=== PATIENT | female | born 1945 | race Asian ===

== ENCOUNTER 2016-07-30 09:37 | Inpatient (IN) | payer MEDICARE, OTHER ==
[~2016-07-30] VITALS: Ht 152.4 cm; Wt 59.0 kg
[~2016-07-30 09:37] MED LIST: ACYC800T PO; AMOX1TAB61 PO; CALC-67 PO; CHLO25TA PO; CIPR500T94 PO; ESOM40CA25 PO; FERR324T14 PO; FLUT1DIS3 IH; GEMF600T PO; GUAI118L20 PO; HYDR12.53 PO; LEVO50TA5 PO; LOSA50TA2 PO; MECL25TA3 PO; OLOP5DRO EACHEYE; SERT50TA PO; SIMV40TA PO; TELM40TA PO
--- NOTE | 2016-07-30 10:22 | PHYS DOC ---
General Chief Complaint: CHEST PAIN Stated Complaint: SOA;CHEST TIGHTNESS Time Seen by MD: 10:09 Source: patient Exam Limitations: language barrier (Urdu 2nd language) Problems: History of Present Illness Initial Comments Pt is 71/F to ED c/o cp, sob, and whole body pain. Pt states that "right before " she developed anterior chest pain described as tightness, moderate, with SOB. No n/v, arm or neck sx, diaphoresis , palpitations, or dizziness. Sx have been constant/progressively increasing since that time. No exacerbating/relieving factors, but past few days pt c/o whole body pain. No cough/fever/FINK/focal neurodefs, no prearrival treatment. Pt states that yesterday morning after drinking coffee she noticed b/l hand tremors, she says she drove here to the ED thinking she may have Parkinson's but did not see a good place to park so decided not to stay and drove home. Pt is very vague historian, she doesn't know her home medications. Timing/Duration: getting worse ("right before ") Severity: severe Modifying Factors: improves with other Associated Symptoms: chest pain, malaise, shortness of breath, other Allergies: Coded Allergies: No Known Drug Allergies (Unverified , 11/26/15) Past Medical History Medical History: high cholesterol, hypertension Surgical History: noncontributory Psychosocial History: anxiety, depression Social History Smoker: non-smoker Alcohol: none Drugs: none Review of Systems Constitutional: denies chills, denies diaphoresis, denies fever Respiratory: denies cough, shortness of breathdenies wheezing Cardiovascular: chest paindenies edema, denies palpitations, denies syncope Gastrointestinal: denies abdominal pain, denies constipation, denies diarrhea, denies nausea, denies vomiting Genitourinary: denies dysuria, denies frequency, denies hematuria Musculoskeletal: see HPI Psychiatric/Neurological: denies headache, denies numbness, denies paresthesia , denies seizure, denies weakness Physical Exam General Appearance: WD/WN, no apparent distress Eyes: bilateral eye EOMI, bilateral eye PERRL, bilateral eye normal inspection Ear, Nose, Throat: hearing grossly normal, normal ENT inspection, normal pharynx Neck: non-tender, supple Respiratory: chest non-tender, normal breath sounds, no respiratory distress Cardiovascular: normal peripheral pulses, regular rate, rhythm, no edema Gastrointestinal: non tender, soft Back: no CVA tenderness, no vertebral tenderness Extremities: non-tender, normal inspection Neurologic/Psychiatric: stem shaper II-XII nml as tested, no motor/sensory deficits, alert, oriented x 3, other (anxious, pressured speech, tangential) Skin: normal color, warm/dry Orders, Labs, Meds EKG: NSR 94 bpm, no ST elevation or depression PATIENT: ANASTACIO NUGENT ACCOUNT: [id number] : 1945 LOCATION: ER AGE: 71 SEX: F EXAM STATUS: REG ER ORD. PHYSICIAN: ISAIAH RIGGINS DO REASON: cp PROCEDURE: CHEST AP ONLY AP portable chest radiograph 07/30/2016 Clinical History: Chest pain for one week. An AP portable erect digital radiograph of the chest was obtained. Comparison study is dated 12/17/2015. The cardiac silhouette is borderline enlarged. The thoracic aorta is mildly tortuous. Atherosclerotic calcification of the thoracic aorta is seen. No acute pulmonary infiltrate is seen. No pleural effusion or pneumothorax is noted. Degenerative changes are seen involving the thoracic spine and both shoulders. Impression: No acute abnormality is seen. DICTATED AND SIGNED BY: KINA CANCHOLA MD DATE: 07/30/16 1035 CC: JANE NAZARIO APRN; ISAIAH RIGGINS DO ~ I discussed pt with oracle database consultant Cardiology Dr Johnson. He recommends [facility] admission , repeat troponin I at 1800 and in am at 0600, check echo/EKG in am. Pt discussed with Dr Corrales who accepts tele/obs admission. Departure Disposition: ADMITTED INPATIENT Diagnosis: chest pain, equivocal troponin I, elev BNP Condition: STABLE Additional Instructions: Tele/obs admission Dr Corrales accepting Dr Johnson to consult. ISAIAH RIGGINS DO Jul 30, 2016 10:22
[2016-07-30 10:23] LABS: BASO % 1 % (0-3); EOS # 0.1 x10^3/uL (0.0-0.7); EOS % 3 % (0-3); HEMOGLOBIN 10.9 g/dL (12.0-15.5); LYMPH # 1.2 x10^3/uL (1.0-4.8); LYMPH % 25 % (24-48); MEAN CORPUSCULAR HEMOGLOBIN 32 pg (25-35); MEAN CORPUSCULAR HGB CONC 34 g/dL (31-37); MEAN CORPUSCULAR VOLUME 94 fL (79-100); MONO # 0.4 x10^3/uL (0.0-1.1); MONO % 9 % (0-9); NEUT % 63 % (31-73); PLATELET COUNT 177 x10^3/uL (140-400); RED BLOOD COUNT 3.41 x10^6/uL (3.50-5.40); RED CELL DISTRIBUTION WIDTH 12.1 % (11.5-14.5); WHITE BLOOD COUNT 4.8 x10^3/uL (4.0-11.0)
--- NOTE | 2016-07-30 10:38 | RAD ---
AP portable chest radiograph 07/30/2016 Clinical History: Chest pain for one week. An AP portable erect digital radiograph of the chest was obtained. Comparison study is dated 12/17/2015. The cardiac silhouette is borderline enlarged. The thoracic aorta is mildly tortuous. Atherosclerotic calcification of the thoracic aorta is seen. No acute pulmonary infiltrate is seen. No pleural effusion or pneumothorax is noted. Degenerative changes are seen involving the thoracic spine and both shoulders. Impression: No acute abnormality is seen.
[2016-07-30 10:39] LABS: ALBUMIN 3.9 g/dL (3.4-5.0); ALBUMIN/GLOBULIN RATIO 1.1 (1.0-1.7); CALCIUM 9.6 mg/dL (8.5-10.1); CREATININE 0.9 mg/dL (0.6-1.0); GFR 61.4; MAGNESIUM 1.8 mg/dL (1.8-2.4); POTASSIUM 4.1 mmol/L (3.5-5.1); TOTAL BILIRUBIN 0.7 mg/dL (0.2-1.0); TOTAL PROTEIN 7.5 g/dL (6.4-8.2)
[2016-07-30] MEDS ORDERED: ASPIRIN 81 MG TAB.CHEW PO ONE (10:45)
--- NOTE | 2016-07-30 10:45 | EKG ---
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
[2016-07-30] MEDS ORDERED: ONDANSETRON PF 4 MG/2 ML VIAL. IV PRN (13:15)
[2016-07-30] MEDS ORDERED: ACETAMINOPHEN 325 MG TABLET PO PRN (13:15)
[2016-07-30 14:00] VITALS: BP 172/83
--- NOTE | 2016-07-30 14:50 | HP ---
ADMIT DATE: 07/30/2016 REASON FOR ADMISSION: Chest pain. HISTORY OF PRESENT ILLNESS: This is a 71-year-old [place] female, who presented to the Emergency Room complaining of a 7-day history of chest pain off and on, which she describes as below boom boom boom. Squeezing type pain that started before Easter. Yesterday, she was coming to go to the Emergency Room and she could not find a parking spot because after drinking coffee, she had hand tremors, but she could not find a good place to park it. So, she left. She denies any type of diaphoresis, but this is ongoing now to the point where her whole body sores. She has to stop herself when it happens and then continue on what she has been doing. She denies any heavy lifting, moving furniture or palpatory chest pain. PAST MEDICAL HISTORY: Right tennis elbow, asthma, allergies, hypothyroidism, hypertension, hyperlipidemia and stress and depression. SOCIAL HISTORY: Nonsmoker, nondrinker. She used to work. 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 FAMILY HISTORY: Father of a heart attack. He had a heart attack in his 60s and at around 70. Mother at age 84. She was sick for a month and then , but otherwise had been well. Maternal grandmother at 92. MEDICATIONS: She does not know her medications. ALLERGIES: None. REVIEW OF SYSTEMS: She denies sore throat, fever. Positive for nervousness and shakes after drinking coffee. Denies weight loss, may be a mild weight gain, yes chest pain, nervousness, stress. OBJECTIVE: VITAL SIGNS: Blood pressure 172/83, pulse 101, respirations 20, and pulse ox is 99% on room air. Her height is 60 inches, weight 130 pounds. GENERAL: A pleasant 71-year-old, currently in no acute distress. HEENT: Her hearing is normal. Her eyes are clear. Her nose is patent. Her throat is clear. NECK: Supple, without adenopathy. There were no carotid bruits. Thyroid was not enlarged. LUNGS: Clear to auscultation. CARDIOVASCULAR: Regular rhythm and rate. ABDOMEN: Soft, nontender, no masses palpated. EXTREMITIES: Without edema, cords, masses, etc. NEUROLOGIC: She is intact. No tremors. LABORATORY DATA: Hemoglobin 10.9, hematocrit 32.0. Electrolytes are normal. Random glucose 178. Her BNP is 655. First troponin is 0.053, D-dimer is 0.39. ASSESSMENT: 1. Chest pain, questionable etiology, certainly has risk factors for coronary artery disease. 2. Normochromic normocytic anemia. 3. Equivocal troponin. 4. Mildly elevated random glucose. 5. Asthma. PLAN: Dr. Majano, the perianesthesia rn will follow along, we will do serial troponins, echo, carotid Dopplers, may benefit from a stress test and we will repeat her blood sugar in the morning. JUAN R MORTON DO DR: LAURA/pauly JOB#: [id number] / [id number]
[2016-07-30 15:10] VITALS: BP 172/83
[2016-07-30] MEDS ORDERED: HEPARIN for IV BOLUS 10,000 UNIT/10 ML VIAL. IV PRN ×2 (15:30→15:45)
[2016-07-30] MEDS ORDERED: HEPARIN 25,000UTS/500ML PREMIX 500 ML IV PRN (15:30)
[2016-07-30] MEDS ORDERED: HEPARIN for IV BOLUS 10,000 UNIT/10 ML VIAL. IV ONE (15:45)
--- NOTE | 2016-07-30 17:08 | RAD ---
Bilateral carotid arterial duplex study 07/30/2016 Clinical History: Dizziness. Technique: Using a combination of real-time ultrasound imaging and color-flow and pulse Doppler imaging techniques, duplex evaluation of the carotid and vertebral arterial structures within the neck was performed. Multiple images were obtained. Findings: Mild atheromatous /atherosclerotic plaque formation is seen involving both carotid bifurcations. The peak systolic velocities are not significantly elevated. No hemodynamically significant stenosis is seen. The vertebral arteries demonstrate normal antegrade flow. Impression: Mild atheromatous/atherosclerotic plaque formation is seen involving both carotid bifurcations. No hemodynamically significant stenosis is seen. Please note that stenosis calculations for carotid ultrasound studies are derived from validated velocity criteria which are known to correlate with the NASCET methodology.
--- NOTE | 2016-07-30 18:12 | ACF ---
Admission Criteria Forms CARDIOLOGY [facility] Clinical Indications for Admission to Inpatient Care ( Place 'X' for any and all applicable criteria): Hospital admission is needed for appropriate care of the patient because of ANY ONE of the following (1): [ ] I. Hemodynamic instability as indicated by ALL of the following (1)(2)(3) (4)(5) [ ]a) Vital signs or other findings not as expected for chronic patient condition or baseline [ ]b) Instability indicated by ANY ONE of the following: [ ]i) Hypotension [ ]ii) Symptomatic Tachycardia unresponsive to treatment ( e.g., analgesia, fluids, sedation as indicated) [ ]iii) Inadequate perfusion indicated by ANY ONE of the following: [ ] 1) Lactic acidosis (> 2 mmol/L) [ ] 2) New abnormal capillary refill (> 3 seconds) [ ] 3) Reduced urine output [ ] 4) New altered mental status [ ]iv) Orthostatic vital sign changes unresponsive to treatment (e.g., fluids) [ ]v) IV inotropic or vasopressor medication required to maintain adequate blood pressure or perfusion [ ] II. Severe heart failure as indicated by ANY ONE of the following(17)(18) [ ]a) Respiratory distress [ ]b) Hypotension [ ]c) Anasarca (refractory to outpatient therapy) [ ]d) Cardiac arrhythmias of immediate concern [ ]e) Myocardial ischemia [ ] III. Cardiac arrhythmias or findings of immediate concern indicated by ANY ONE of the following (19)(20): [ ] a) Heart rhythms that are inherently dangerous or unstable indicated by ANY ONE of the following (21)(22)(23): [ ] i) Resuscitated ventricular fibrillation or cardiac arrest [ ] ii) Ventricular escape rhythm [ ] iii) Sustained ventricular tachycardia (30 seconds or more of ventricular rhythm at greater than 100 beats per minute) [ ] iv) Nonsustained ventricular tachycardia and ANY ONE of the following: [ ] 1) Suspected cardiac ischemia as cause or consequence of ventricular tachycardia [ ] 2) In setting of acute myocarditis [ ] b) Unstable cardiac conduction defects indicated by ANY ONE of the following(23)(24)(25) [ ] i) Type II second-degree atrioventricular block [ ]ii) Third-degree atrioventricular block [ ]iii) New-onset left bundle branch block with suspected myocardial ischemia [ ]c) Any heart rhythm and ANY ONE of the following (21)(22)(26)(27) (28) [ ] i) Continuous long-term ECG monitoring needed (e.g., initiation of drug requiring monitoring for more than 24 hours) [ ] ii) Patient has automatic implanted cardioverter defibrillator that is repeatedly firing, malfunctioning, or in need of immediate adjustment of settings beyond the scope of ambulatory or observation care [ ]d) Heart rhythms of concern due to ANY ONE of the following: [ ] i) Hypotension [ ] ii) Respiratory distress [ ] iii) Association with other significant symptoms (e.g., bradycardia with syncope or ongoing dizziness, supraventricular tachycardia with chest pain (14)(15)(17) [ ] IV. Monitoring for cardiac contusion beyond the scope of observation care needed [A](30)(31)(32) [ ] V. Surgical or device complication (e.g., valve replacement complication , pacemaker dysfunction) (35)(41)(44)(45)(46) [ ] . Inpatient palliative care needed. [B](49) Also use Inpatient Palliative Care Criteria [ ] VII. Nonbacterial thrombotic (marantic) endocarditis (36)(43)(47)(48) [X] VIII. Cardiology condition, symptom, or finding for which emergency and observation care has failed or are not considered appropriate. [ ] IX. Acute valvular disease requiring inpatient as indicated by ANY ONE of the following (41) [ ]a) Acute valvular regurgitation (42) [ ]b) Noninfectious valvulitis (43) [ ]c) Obstructive valve thrombosis [ ]d) Paravalvular leak [ ]e) Other significant valvular disorder remaining after emergency or observation level of care (as appropriate) [ ]X. Pericardial disease requiring inpatient treatment as indicated by ANY ONE of the following (33)(34)(35)(36)(37) [ ]a) Suspected tamponade (38)(39)(40) [ ]b) Hemopericardium [ ]c) Other significant pericardial disorder remaining after emergency or observation level of care (as appropriate) [ ] XI. Cardiac ischemia beyond scope of emergency and observation care. [ ] XII. Hypertension requiring inpatient treatment as indicated by ANY ONE of the following (6)(7)(8) [ ]a) SBP greater than 220 mm Hg or DBP greater than 120 mmHg despite treatment [ ]b) SBP greater than 140 mm Hg or DBP greater than 100 mm Hg with evidence of acute end organ damage as indicated by ANY ONE of the following [ ] i) Encephalopathy [ ] ii) Acute renal failure as indicated by new onset of ANY ONE of the following (9)(10)(11)(12)(13) [ ]1) 3-fold rise in serum creatinine from baseline [ ]2) Serum creatinine greater than 4 mg/dL ( 354 micromoles/L) with acute rise greater than 0.5 mg/dL (44.2 micromoles/L) [ ]3) Reduction of more than 75% in estimated glomerular filtration rate from baseline [ ]4) Estimated glomerular filtration rate less than 35 mL/min/1.73m2 (0.59 mL/sec/1.73m2) in child up to 18 years of age [ ]5) Cessation of urine output indicated by ALL of the following [ ]A. Adequate volume status [ ]B. Inadequate urine output as indicated by ANY ONE of the following [ ]a. Urine output less than 0.3 mL/kg/hr for 24 hours [ ]b. Anuria (urine output less than 0.1 mL/kg/hr) for 12 hours [ ] iii) Aortic dissection [ ] iv) Myocardial Ischemia [ ] v) Left ventricular heart failure [ ]vi) Retinal Hemorrhage [ ]vii) Other significant finding [ ]c) Hypertension in child requiring inpatient treatment as indicated by ALL of the following(14)(15)(16) [ ] i) Outpatient treatment not effective, not available, or not appropriate [ ]ii) SBP or DBP greater than 95th percentile for age [ ]iii) Evidence of acute end organ damage as indicated by ANY ONE of the following [ ]1) Altered mental status [ ]2) Acute renal failure as indicated by new onset of ANY ONE of the following(9)(10)(11)(12)(13) [ ]A. 3-fold rise in serum creatinine from baseline [ ]B. Serum creatinine greater than 4 mg/dL (354 micromoles/L) with acute rise greater than 0.5 mg/dL (44.2 micromoles/L) [ ]C. Reduction of more than 75% in estimated glomerular filtration rate from baseline [ ]D. Estimated glomerular filtration rate less than 35 mL/min/1.73m2 (0.59 mL/sec/1.73m2) in child up to 18 years of age [ ]E. Cessation of urine output indicated by ALL of the following [ ]a. Adequate volume status [ ]b. Inadequate urine output as indicated by ANY ONE of the following [ ]i) Urine output less than 0.3 mL/kg/hr for 24 hours [ ]ii) Anuria ( urine output less than 0.1 mL/kg/hr) for 12 hours [ ]3) Severe headache [ ]4) Visual disturbance [ ]5) Retinal hemorrhage [ ]6) Other significant finding [ ]XIII. Complications of transplanted heart indicated by ANY ONE of the following(61): [ ]a) Acute graft rejection requiring inpatient management (eg, intravenous immunosuppression)(62)(63) [ ]b) Acute graft heart failure indicated by ANY ONE of the following(64): [ ]i) Hemodynamic instability [ ]ii) Cardiac arrhythmias of immediate concern [ ]iii) Pulmonary edema that is very severe (eg, mechanical ventilation needed, imminent or likely, need for 100% oxygen to keep oxygen saturation above 90%) [ ]iv) Pulmonary edema that is persistent as indicated by ALL of the following: [ ]1) New need for oxygen therapy to keep oxygen saturation above 90% (or increased FiO2 need from baseline) [ ]2) Has not improved sufficiently with emergency department or observation care IV diuretics or other heart failure treatments[E] [ ]v) Altered mental status that is severe or persistent [ ]vi) Increased creatinine (new on laboratory test) with reduction of more than 50% in estimated glomerular filtration rate from baseline [ ]vii) Progressively (ongoing) rising creatinine (known from past laboratory test) with reduction of more than 25% in estimated glomerular filtration rate from baseline [ ]viii) Acute renal failure [ ]ix) Acute peripheral ischemia (eg, examination shows pulseless, cool, mottled, or cyanotic extremity) [ ]x) Pulmonary artery catheter monitoring needed [ ]xi) Other sign or symptom of heart failure requiring inpatient treatment (ie, too severe or not responsive to outpatient and observation care treatment) [ ]c) Infection requiring inpatient management (eg, Hemodynamic instability, need for intravenous antimicrobial treatment)(66)(67)(68)(69)(70) [ ]d) Cardiac allograft vasculopathy requiring inpatient management ( eg evidence of cardiac ischemia)(71) [ ]e) Other complication of transplanted heart (eg, stroke, severe pulmonary hypertension, severe valvular dysfunction) requiring inpatient management(72) The original [facility] content created by [facility] has been revised. The portions of the content which have been revised are identified through the use of italic text or in bold, and [facility] has neither reviewed nor approved the modified material. All other unmodified content is copyright [facility]. Please see references footnoted in the original [facility] edition 2016 Admission Criteria Met?: Yes GWENDOLYN MORRELL Jul 30, 2016 18:12
[2016-07-30 18:54] VITALS: BP 166/80
[2016-07-30] MEDS: FAMOTIDINE 20 MG/2 ML VIAL IVP SCH (20:12)
[2016-07-30 22:01] VITALS: BP 172/73
[2016-07-30] MEDS ORDERED: ALPRAZOLAM 0.25 MG TABLET PO PRN (22:15)
[2016-07-30] MEDS: NITROGLYCERIN OINT 1 GM PACKET. TP SCH ×2 (22:29→23:29)
[2016-07-30] MEDS ORDERED: MORPHINE SULFATE 2 MG/ML DISP.SYRIN. IV PRN (22:30)
[2016-07-30] MEDS ORDERED: ALPRAZOLAM 0.5 MG TABLET PO ONE (22:30)
[2016-07-30] MEDS ORDERED: ATOR40TA PO (22:36)
[2016-07-30] MEDS ORDERED: ESOM40CA PO (22:38)
[2016-07-30] MEDS ORDERED: MONT10TA9 PO (22:41)
[2016-07-30 22:45] LABS: BILIRUBIN,URINE NEG (NEG); CLARITY,URINE CLEAR; COLOR,URINE YELLOW; GLUCOSE,URINE NEG (NEG)
[2016-07-30 22:46] LABS: NITRITE,URINE NEG (NEG); UROBILINOGEN,URINE 0.2 mg/dL (0.2 mg/dL)
[2016-07-30 22:47] LABS: BACTERIA,URINE 0 /HPF (0-FEW)
[2016-07-30 22:48] LABS: SQUAMOUS EPITHELIAL CELL,UR FEW /LPF
[2016-07-30] MEDS ORDERED: CARB15DR3 EACHEYE (22:49)
[2016-07-30] MEDS ORDERED: OMEG-33 PO (22:50)
[2016-07-30] MEDS ORDERED: CYAN1TAB15 SL (22:52)
[2016-07-30] MEDS ORDERED: CHOL200044 PO (22:53)
[2016-07-30] MEDS ORDERED: MULT-208 PO (22:53)
[2016-07-30] MEDS ORDERED: ENZY1CAP PO (22:54)
[2016-07-30] MEDS ORDERED: L.AC1CAP6 PO (22:54)
[2016-07-31] MEDS: NITROGLYCERIN OINT 1 GM PACKET. TP SCH (05:50)
[2016-07-31 05:58] VITALS: BP 119/69
[2016-07-31] MEDS ORDERED: LEVOTHYROXINE 50 MCG TABLET PO SCH (06:00)
[2016-07-31 07:09] LABS: BASO % 1 % (0-3); EOS # 0.1 x10^3/uL (0.0-0.7); EOS % 3 % (0-3); HEMATOCRIT 30.3 % (36.0-47.0); HEMOGLOBIN 10.2 g/dL (12.0-15.5); LYMPH # 0.9 x10^3/uL (1.0-4.8); LYMPH % 21 % (24-48); MEAN CORPUSCULAR HEMOGLOBIN 32 pg (25-35); MEAN CORPUSCULAR HGB CONC 34 g/dL (31-37); MEAN CORPUSCULAR VOLUME 94 fL (79-100); MONO # 0.3 x10^3/uL (0.0-1.1); MONO % 8 % (0-9); NEUT # 2.9 x10^3uL (1.8-7.7); NEUT % 67 % (31-73); PLATELET COUNT 153 x10^3/uL (140-400); RED BLOOD COUNT 3.23 x10^6/uL (3.50-5.40); WHITE BLOOD COUNT 4.3 x10^3/uL (4.0-11.0)
[2016-07-31 07:13] LABS: CALCIUM 8.9 mg/dL (8.5-10.1); CREATININE 0.8 mg/dL (0.6-1.0); GFR 70.3; POTASSIUM 3.6 mmol/L (3.5-5.1)
[2016-07-31] MEDS ORDERED: PANTOPRAZOLE 40 MG TABLET. PO SCH (07:30)
[2016-07-31] MEDS ORDERED: CHLORTHALIDONE 25 MG TABLET PO SCH (09:00)
[2016-07-31] MEDS ORDERED: LOSARTAN 50 MG TABLET. PO SCH (09:00)
[2016-07-31] MEDS ORDERED: ENZYMES DIGESTIVE PO SCH (09:00)
[2016-07-31] MEDS ORDERED: MULTIVITAMIN I-VITE TABLET. PO SCH (09:00)
[2016-07-31] MEDS ORDERED: SERTRALINE 50 MG TABLET. PO SCH (09:00)
[2016-07-31] MEDS ORDERED: GEMFIBROZIL 600 MG TABLET. PO SCH (09:00)
[2016-07-31] MEDS ORDERED: OMEGA-3 FATTY ACIDS/FISH OIL 1,000 MG CAPSULE. PO SCH (09:00)
[2016-07-31] MEDS ORDERED: KETOTIFEN FUMARATE 0.025% OPHT SOLUTION BOTTLE. OU SCH ×2 (09:00→14:20)
[2016-07-31] MEDS ORDERED: LACTOBACILLUS ACIDOPH & BULGAR 1 TABLET. PO SCH (09:00)
[2016-07-31] MEDS ORDERED: CHOLECALCIFEROL (VITAMIN D3) 1,000 UNIT TABLET PO SCH (09:00)
[2016-07-31] MEDS ORDERED: POLYVINYL ALCOHOL 1.4% OPHTH SOLUTION 15ML BOTTLE. OU SCH (09:00)
[2016-07-31] MEDS ORDERED: CYANOCOBALAMIN (VITAMIN B-12) 1,000 MCG TABLET. PO SCH (09:00)
[2016-07-31] MEDS ORDERED: MONTELUKAST 10 MG TABLET. PO SCH (09:00)
--- NOTE | 2016-07-31 09:04 | PDOC2 ---
CONSULT Date of Admission DATE: 07/31/16 TIME: 09:03 Reason for Consult: chest pain Current Medications Current Medications Aspirin (Children'S Aspirin) 324 mg 1X ONCE PO Last administered on 07/30/16 10:36; Start 07/30/16 at 10:45; Stop 07/30/16 at 10:46; Status DC Ondansetron HCl (Zofran) 4 mg PRN Q4HRS PRN IV NAUSEA/VOMITING; Start 07/30/16 at 13:15; Stop 07/31/16 at 13:14 Acetaminophen (Tylenol) 650 mg PRN Q4HRS PRN PO FEVER; Start 07/30/16 at 13:15 ; Stop 07/31/16 at 13:14 Famotidine 20 mg 20 mg Q12HR IVP Last administered on 07/30/16 20:12; Start at 21:00 Heparin Sodium/ Dextrose 500 ml @ 0 mls/hr CONT PRN IV SEE I/O RECORD Last administered on 07/30/16 17:05; Start 07/30/16 at 15:30 Heparin Sodium (Porcine) 4,000 unit 1X ONCE IV Last administered on 07/30/16 17:04; Start 07/30/16 at 15:45; Stop 07/30/16 at 15:46; Status DC Heparin Sodium (Porcine) 2,000 unit PRN Q6HRS PRN IV FOLLOW PROTOCOL GUIDELINES ; Start 07/30/16 at 15:45 Heparin Sodium (Porcine) 1,000 unit PRN Q6HRS PRN IV FOLLOW PROTOCOL GUIDELINES ; Start 07/30/16 at 15:30 Morphine Sulfate (Morphine 2mg Syringe) 2 mg PRN Q3HRS PRN IV PAIN Last administered on 07/30/16 22:28; Start 07/30/16 at 22:30 Alprazolam (Xanax) 1 mg 1X ONCE PO Last administered on 07/30/16 22:27; Start 07/30/16 at 22:30; Stop 07/30/16 at 22:31; Status DC Alprazolam (Xanax) 1 mg PRN Q6HRS PRN PO ANXIETY / AGITATION; Start 07/30/16 at 22:15 Nitroglycerin (Nitro-Bid Oint) 1 inch Q6HRS TP Last administered on 07/31/16 05:50; Start 07/30/16 at 22:30 Chlorthalidone (Thalitone) 25 mg DAILY PO ; Start 07/31/16 at 09:00 Gemfibrozil (Lopid) 600 mg BID PO ; Start 07/31/16 at 09:00 Levothyroxine Sodium (Synthroid) 50 mcg DAILY06 PO Last administered on 05:50; Start 07/31/16 at 06:00 Losartan Potassium (Cozaar) 50 mg DAILY PO ; Start 07/31/16 at 09:00 Montelukast Sodium (Singulair) 10 mg DAILY PO ; Start 07/31/16 at 09:00 Sertraline HCl (Zoloft) 50 mg DAILY PO ; Start 07/31/16 at 09:00 Atorvastatin Calcium (Lipitor) 40 mg QHS PO ; Start 07/31/16 at 21:00 Artificial Tears (Artificial Tears) 1 drop BID OU ; Start 07/31/16 at 09:00 Vitamin D (Vitamin D3) 2,000 unit DAILY PO ; Start 07/31/16 at 09:00 Cyanocobalamin (Vitamin B-12) 1,000 mcg DAILY PO ; Start 07/31/16 at 09:00 Non-Formulary Medication 1 each DAILY PO ; Start 07/31/16 at 09:00; Status UNV Pantoprazole Sodium (Protonix) 40 mg DAILYAC PO ; Start 07/31/16 at 07:30 Lactobacillus Acidophilus (Bacid, Irma-Bid) 1 tab DAILY PO ; Start 07/31/16 at 09:00 Multivitamins/ Minerals (I-Yenifer) 1 tab DAILY PO ; Start 07/31/16 at 09:00 Ketotifen Fumarate (Zaditor) 1 drop BID OU ; Start 07/31/16 at 09:00 Fish Oil (Fish Oil) 1,000 mg DAILY PO ; Start 07/31/16 at 09:00 Active Scripts Active Reported Probiotic (L.acidoph & Paracasei,B.lactis) 1 Each Capsule 1 Each PO DAILY Enzyme Digest (Enzymes,Digestive) 1 Each Capsule 1 Each PO DAILY Multi-Day Vitamins (Multivitamin) 1 Each Tablet 1 Tab PO DAILY D3-2000 (Cholecalciferol (Vitamin D3)) 2,000 Unit Capsule 2,000 Unit PO DAILY B-12 1,000 Mcg Sub Tablet (Cyanocobalamin/Folic Acid) 1 Each Tab.subl 1 Each SL DAILY [place] 3 1,000 Mg Softgel ([place]-3 Fatty Acids/Fish Oil) 1 Each Capsule 1 Each PO DAILY Refresh Optive Eye Drops (Carboxymethylcellulos/Glycerin) 15 Ml Drops 1 Drop EACHEYE BID Montelukast Sodium Tablet (Montelukast Sodium) 10 Mg Tablet 1 Tab PO DAILY Nexium Capsule (Esomeprazole Magnesium) 40 Mg Capsule.dr 1 Cap PO DAILY Lipitor (Atorvastatin Calcium) 40 Mg Tablet 1 Tab PO QHS Chlorthalidone 25 Mg Tablet 1 Tab PO DAILY Cozaar (Losartan Potassium) 50 Mg Tablet 50 Mg PO DAILY Levothyroxine Sodium 50 Mcg Tablet 1 Tab PO DAILY Calcium 500 + D Tablet (Calcium Carbonate/Vitamin D3) 1 Each Tablet 1 Each PO Lopid (Gemfibrozil) 600 Mg Tablet 1 Tab PO BID Patanol (Olopatadine Hcl) 5 Ml Drops 1 Drop EACHEYE BID Zoloft (Sertraline Hcl) 50 Mg Tablet 1 Tab PO DAILY Allergies: Coded Allergies: No Known Drug Allergies (Unverified , 11/26/15) VITALS Vital Signs Date Time Temp Pulse Resp B/P Pulse Ox O2 Delivery O2 Flow Rate FiO2 07/31/16 05:58 98.2 96 20 119/69 96 Room Air Labs Laboratory Tests Test 07/30/16 09:55 07/30/16 14:38 07/30/16 22:00 07/30/16 22:45 White Blood Count 4.8x10^3/uL (4.0-11.0) Red Blood Count 3.41x10^6/uL (3.50-5.40) Hemoglobin 10.9g/dL (12.0-15.5) Hematocrit 32.0% (36.0-47.0) Mean Corpuscular Volume 94fL (79-100) Mean Corpuscular Hemoglobin 32pg (25-35) Mean Corpuscular Hemoglobin Concent 34g/dL (31-37) Red Cell Distribution Width 12.1% (11.5-14.5) Platelet Count 177x10^3/uL (140-400) Neutrophils (%) (Auto) 63% (31-73) Lymphocytes (%) (Auto) 25% (24-48) Monocytes (%) (Auto) 9% (0-9) Eosinophils (%) (Auto) 3% (0-3) Basophils (%) (Auto) 1% (0-3) Neutrophils # (Auto) 3.0x10^3uL (1.8-7.7) Lymphocytes # (Auto) 1.2x10^3/uL (1.0-4.8) Monocytes # (Auto) 0.4x10^3/uL (0.0-1.1) Eosinophils # (Auto) 0.1x10^3/uL (0.0-0.7) Basophils # (Auto) 0.0x10^3/uL (0.0-0.2) Prothrombin Time 10.4SEC (9.4-11.4) Prothromb Time International Ratio 1.0 (0.9-1.1) Activated Partial Thromboplast Time 24SEC (23-33) > 150SEC (23-33) D-Dimer (Krysten) 0.39mg/L (0.00-0.50) Sodium Level 143mmol/L (136-145) Potassium Level 4.1mmol/L (3.5-5.1) Chloride Level 105mmol/L (98-107) Carbon Dioxide Level 29mmol/L (21-32) Anion Gap 9 (6-14) Blood Urea Nitrogen 29mg/dL (7-20) Creatinine 0.9mg/dL (0.6-1.0) Estimated GFR (Cockcroft-Gault) 61.4 BUN/Creatinine Ratio 32 (6-20) Glucose Level 178mg/dL (70-99) Calcium Level 9.6mg/dL (8.5-10.1) Magnesium Level 1.8mg/dL (1.8-2.4) Total Bilirubin 0.7mg/dL (0.2-1.0) Aspartate Amino Transf (AST/SGOT) 29U/L (15-37) Alanine Aminotransferase (ALT/SGPT) 17U/L (14-59) Alkaline Phosphatase 82U/L (46-116) Creatine Kinase 110U/L (26-192) Troponin I Quantitative 0.053ng/mL (0-0.055) 0.080ng/mL (0-0.055) VE-Yis-M-Type Natriuretic Peptide 655pg/mL (0-124) Total Protein 7.5g/dL (6.4-8.2) Albumin 3.9g/dL (3.4-5.0) Albumin/Globulin Ratio 1.1 (1.0-1.7) Lipase 302U/L (73-393) Urine Collection Type Unknown Urine Color Yellow Urine Clarity Clear Urine pH 6.0 Urine Specific [place] 1.025 Urine Protein >100 mg/dl (NEG-TRACE) Urine Glucose (UA) Negmg/dL (NEG) Urine Ketones (Stick) Negmg/dL (NEG) Urine Blood Trace (NEG) Urine Nitrite Neg (NEG) Urine Bilirubin Neg (NEG) Urine Urobilinogen Dipstick 0.2mg/dL (0.2 mg/dL) Urine Leukocyte Esterase Trace (NEG) Urine RBC 1-2/HPF (0-2) Urine WBC 1-4/HPF (0-4) Urine Squamous Epithelial Cells Few/LPF Urine Bacteria 0/HPF (0-FEW) Test 07/31/16 06:35 07/31/16 06:44 Sodium Level 143mmol/L (136-145) Potassium Level 3.6mmol/L (3.5-5.1) Chloride Level 105mmol/L (98-107) Carbon Dioxide Level 29mmol/L (21-32) Anion Gap 9 (6-14) Blood Urea Nitrogen 29mg/dL (7-20) Creatinine 0.8mg/dL (0.6-1.0) Estimated GFR (Cockcroft-Gault) 70.3 Glucose Level 186mg/dL (70-99) Calcium Level 8.9mg/dL (8.5-10.1) White Blood Count 4.3x10^3/uL (4.0-11.0) Red Blood Count 3.23x10^6/uL (3.50-5.40) Hemoglobin 10.2g/dL (12.0-15.5) Hematocrit 30.3% (36.0-47.0) Mean Corpuscular Volume 94fL (79-100) Mean Corpuscular Hemoglobin 32pg (25-35) Mean Corpuscular Hemoglobin Concent 34g/dL (31-37) Red Cell Distribution Width 12.0% (11.5-14.5) Platelet Count 153x10^3/uL (140-400) Neutrophils (%) (Auto) 67% (31-73) Lymphocytes (%) (Auto) 21% (24-48) Monocytes (%) (Auto) 8% (0-9) Eosinophils (%) (Auto) 3% (0-3) Basophils (%) (Auto) 1% (0-3) Neutrophils # (Auto) 2.9x10^3uL (1.8-7.7) Lymphocytes # (Auto) 0.9x10^3/uL (1.0-4.8) Monocytes # (Auto) 0.3x10^3/uL (0.0-1.1) Eosinophils # (Auto) 0.1x10^3/uL (0.0-0.7) Basophils # (Auto) 0.0x10^3/uL (0.0-0.2) Activated Partial Thromboplast Time 29SEC (23-33) Troponin I Quantitative 0.079ng/mL (0-0.055) Images EKG - sinus rhythm with leftward axis, prominent R V2, non specific st/t abnormalities CXR - no acute abnormalities Assessment/Plan She is a [facility] patient who would like to follow with them so we will turn over the consult. Problems: MARIA GUADALUPE LIND APRN Jul 31, 2016 09:04
--- NOTE | 2016-07-31 09:55 | PDOC2 ---
CONSULT The patient has been seen and examined and the full consult has been dictated.~ I have summarized the most important points for review while the note is being transcribed.~ Please see the dictation for complete details. Summary:Cheat Pain and positive trop: In view of multiple RF's, nain transfer for cath on IVF Problems: BRADEN HANSON MD Jul 31, 2016 09:55
[2016-07-31] MEDS ORDERED: 0.9 % SODIUM CHLORIDE 10 ML DISP.SYRIN. IV SCH (10:00)
[2016-07-31] MEDS ORDERED: IV NORMAL SALINE 1,000ML 1,000 ML ONE (10:04)
[2016-07-31] MEDS: FAMOTIDINE 20 MG/2 ML VIAL IVP SCH (10:08)
[2016-07-31 11:02] VITALS: BP 151/72
[2016-07-31] MEDS ORDERED: IV NORMAL SALINE 1,000ML 1,000 ML IV SCH (11:15)
--- NOTE | 2016-07-31 12:32 | CONS ---
DATE OF CONSULTATION: CARDIOLOGY CONSULTATION REQUESTING PHYSICIAN: Maycol Fletcher MD REASON FOR CONSULTATION: Chest pain and positive troponin. HISTORY OF PRESENT ILLNESS: This is a 71-year-old female of [place]haric descent, who started experiencing chest pain off and on for the last week. It started one week ago and initially she thought it was pneumonia. She had pain across her chest associated with a cough. Since then, she has noticed pain with talking. Yesterday, she had more symptoms of the same nature and decided that it was going on for too long and decided to come to the hospital. On arrival here, her troponins are mildly elevated. She has had no further pain, but is on a nitro paste. REVIEW OF SYSTEMS: Denies. She has a cough. She does have shortness of breath. She feels breathing and taking in a few deep breaths does help. She has chest pain as above. She denies any palpitations, dizziness, lightheadedness or syncope. Rest of the 10-organ review of systems was negative. PAST MEDICAL HISTORY: She has a history of hypertension, hyperlipidemia and hypothyroidism. SOCIAL HISTORY: She lives alone in an apartment. Her children live in town locally. She does not smoke or take alcohol. FAMILY HISTORY: Her father in 70s and had a "stroke" after "a rock fell on him." Mother did not have any heart disease. Siblings do not have any heart disease. MEDICATIONS: Prior to admission, Cozaar 50 mg, Lipitor 40, Lopid 600, [place], digestive capsule, apple cider vinegar, Citracal, multivitamins, Nexium 40, omega 3 ____ probiotic, Synthroid 50, vitamin B12, vitamin C and Zoloft. PHYSICAL EXAMINATION: GENERAL: She appears comfortable. VITAL SIGNS: Her pulse rate is 90-96 regular. Blood pressure is 172/73. HEENT: Pupils are equal and reactive. Extraocular movements are normal. Sclerae are clear. Mucous membranes are moist. NECK: Supple. There is no thyromegaly. No carotid bruits. Jugular venous pressure is not elevated. CARDIOVASCULAR: Reveals that the apical impulse is not palpable. There are no parasternal pulsations or heaves. First and second heart sounds appear normal. There are no murmurs, rubs or gallops even with the patient leaning forward. LUNGS: Her chest is ____ with equal breath sounds bilaterally without any adventitious sounds. ABDOMEN: Soft without any palpable mass or pulsations. No bruits. EXTREMITIES: Reveal no edema. Distal pulses are well felt. There is no cyanosis or clubbing. No tremors. NEUROLOGIC: There was no facial asymmetry. There were no motor or sensory deficits. SKIN: There were no skin rashes. INVESTIGATIONS: Her EKG shows sinus rhythm with mild intraventricular conduction delay with a QRS duration of [address] or T wave abnormalities. LABORATORY DATA: Shows hemoglobin of 10.9, hematocrit of 32, MCV of 94. Her troponins were 0.53, 0.08 and 0.79. ProBNP is 655. BUN is 29, creatinine is 0.8. D-dimer was negative. IMPRESSION: 1. Chest pain: Her chest pain is difficult to qualify. This has been going on for a week. It is worsened by talking. Her troponins are mildly abnormal. I would proceed with a cardiac catheterization at this point to define this better as she has multiple risk factors including age, hypertension and hyperlipidemia. 2. Hypertension: Her blood pressure is elevated. We will follow this after she gets her medications today and make adjustments accordingly. 3. Hyperlipidemia: She is on Lipitor and Lopid. I will add on a fasting lipid profile. 4. Hypothyroidism: She is on medications. 5. Anemia: Of uncertain cause. BRADEN HANSON MD DR: HELGA/pauly JOB#: [id number] / [id number] ecc Poppy, ____ Britt Flores AHMED MD
[2016-07-31 13:45] LABS: FREE T4 2.95 ng/dL (0.76-1.46); THYROID STIM HORMONE (TSH) 0.037 uIU/mL (0.358-3.740)
--- NOTE | 2016-07-31 17:57 | DS ---
DATE OF DISCHARGE: 07/31/2016 HISTORY OF PRESENT ILLNESS: The patient is a 71-year-old female patient who was basically admitted through the Emergency Room with a complaint of chest pain. She apparently started experiencing chest pain off and on for the last week, it started 1 week ago and initially she thought that it was pneumonia. She had pain across her chest associated with cough. Since then, she has noticed pain with talking and yesterday she had more symptoms of same nature and decided that it is going for too long and decided to come to the hospital. On arrival, her troponin was mildly elevated. She has had no further pain, but is on nitro paste. She has 3 sets of troponin were all elevated. She was evaluated by the Cardiology team and decision was made to transfer her to [facility] with the plan to proceed with cardiac catheterization given that she has multiple risk factors and her troponin was slightly elevated. PHYSICAL EXAMINATION: GENERAL: Prior to discharge, she was resting slightly propped up in bed, in no apparent respiratory distress, slightly pale, but no jaundice, cyanosis, or thyromegaly. No jugular venous distention. No limb edema. VITAL SIGNS: Her heart rate was 87, blood pressure 151/72, temperature was 97.9, respiratory rate 20, and oxygen saturation was 94%. HEAD, EYES, EARS, NOSE AND THROAT: Showed normocephalic, atraumatic. NECK: Supple. HEART: Showed normal first and second heart sounds with no gallop, rub or murmur. CHEST: Clear to auscultation. No crepitation or rhonchi. ABDOMEN: Distended, soft, nontender. No guarding or rigidity. No organomegaly. Hernial orifices intact. Bowel sounds normal. NEUROLOGIC: She was awake, alert, responding appropriately. Cranial nerves intact. She moves extremities without difficulty. Her intake over the last 24 hours was 360, output was 600. LABORATORY DATA: Her lab work this morning showed a serum sodium 143, potassium 3.6, chloride 105, bicarbonate 29, anion gap of 9, BUN 29, creatinine 0.8, estimated GFR was 70, glucose 126, calcium was 8.9. She has 3 sets of cardiac enzymes that were elevated white cell count was 4300, hemoglobin 10.2, hematocrit 30.3, MCV 94, and platelet count 153,000. Her triglycerides were 124. Total cholesterol 127, LDL cholesterol was 65, VLDL was 24. Her HDL cholesterol was 48 and the ratio was 2. Her TSH was extremely low at 0.037 and her free T4 was high at 2.95 indicating that she has hyperthyroidism. Her prothrombin time was 7.4, INR 1, aPTT was 24 and she apparently had had a chest x-ray, which showed no acute cardiopulmonary abnormality and carotid Doppler ultrasound showed mild atheromatous arteriosclerotic plaquing, plaque formation is seen involving both carotid bifurcation. Hemodynamically significant stenosis seen. Given her multiple risks factors and slightly elevated cardiac enzymes, a decision was made to transfer her to [facility] for cardiac catheterization to elucidate the problem further. FINAL DISCHARGE DIAGNOSES: Chest pain with probably ischemic multiple risk factor for coronary artery disease including hypertension, hyperlipidemia, bronchial asthma. She is clinically euthyroid toxic with undetectable TSH and elevated free T4. JD MEDINA MD DR: DAVI/pauly JOB#: [id number] / [id number]
[2016-07-31] MEDS ORDERED: ATORVASTATIN CALCIUM 20 MG TABLET PO SCH (21:00)
== END 2016-07-31 14:41 | disposition short-term general hospital (02) | DRG 311 ==
LOC: ER 09:37 → 1 SOUTH 13:41
PROVIDERS: ADMIT Family Medicine; ATTEND Family Medicine
DX: I20.9 Angina pectoris, unspecified (principal); E03.9 Hypothyroidism, unspecified; D64.9 Anemia, unspecified; E78.00 Pure hypercholesterolemia, unspecified; E78.5 Hyperlipidemia, unspecified; I10 Essential (primary) hypertension; F32.9 Major depressive disorder, single episode, unspecified; F41.9 Anxiety disorder, unspecified; J45.909 Unspecified asthma, uncomplicated; Z82.3 Family history of stroke; Z82.49 Family history of ischemic heart disease and other diseases of the circulatory system; Z87.01 Personal history of pneumonia (recurrent)
CPT/HCPCS: 36415; 71010; 80048; 80053; 80061; 81001; 82550; 83690; 83735; 83880; 84439; 84443; 84484; 85027; 85379; 85610; 85730; 87086; 93005; 93880; J1644; J2270; S0028; 99285-25; J7030

== ENCOUNTER → 2016-08-07 | Outpatient (CLI) | payer MEDICARE, OTHER ==
[2016-07-31 11:02] VITALS: BP 151/72
[~2016-08-07] MED LIST changes: +ATOR40TA PO; +CARB15DR3 EACHEYE; +CHOL200044 PO; +CYAN1TAB15 SL; +ENZY1CAP PO; +ESOM40CA PO; +L.AC1CAP6 PO; +MONT10TA9 PO; +MULT-208 PO; +OMEG-33 PO
--- NOTE | 2016-08-07 14:02 | RAD ---
Indication chronic pain. AP and lateral views of the thoracic spine were obtained as well as a swimmer's view. There is suspect bony demineralization. Significant degenerative changes in the thoracic spine are not seen particularly given the patient's age. An acute finding is not apparent. IMPRESSION: No acute or significant bony finding
== END | disposition home or self-care (01) ==
LOC: DXRADRC 13:36
PROVIDERS: ATTEND Nurse Practitioner Family
DX: M54.6 Pain in thoracic spine (principal); G89.29 Other chronic pain
CPT/HCPCS: 72072

== ENCOUNTER → 2016-08-21 | Outpatient (CLI) | payer MEDICARE, OTHER ==
[2016-07-31 11:02] VITALS: BP 151/72
[~2016-08-21] MED LIST changes: +CALC-31 PO; -CALC-67 PO
[2016-08-21 11:42] LABS: BASO % 0 % (0-3); EOS # 0.2 x10^3/uL (0.0-0.7); EOS % 5 % (0-3); HEMATOCRIT 30.7 % (36.0-47.0); HEMOGLOBIN 10.6 g/dL (12.0-15.5); LYMPH # 1.4 x10^3/uL (1.0-4.8); LYMPH % 29 % (24-48); MEAN CORPUSCULAR HEMOGLOBIN 32 pg (25-35); MEAN CORPUSCULAR HGB CONC 35 g/dL (31-37); MEAN CORPUSCULAR VOLUME 91 fL (79-100); MONO # 0.4 x10^3/uL (0.0-1.1); MONO % 8 % (0-9); NEUT # 2.7 x10^3uL (1.8-7.7); NEUT % 58 % (31-73); PLATELET COUNT 167 x10^3/uL (140-400); RED BLOOD COUNT 3.36 x10^6/uL (3.50-5.40); RED CELL DISTRIBUTION WIDTH 11.9 % (11.5-14.5); WHITE BLOOD COUNT 4.7 x10^3/uL (4.0-11.0)
[2016-08-21 11:48] LABS: CALCIUM 9.3 mg/dL (8.5-10.1); CREATININE 0.8 mg/dL (0.6-1.0); GFR 70.3; POTASSIUM 4.8 mmol/L (3.5-5.1)
== END | disposition home or self-care (01) ==
LOC: LAB 10:49
PROVIDERS: ATTEND Internal Medicine
DX: Z01.818 Encounter for other preprocedural examination (principal); R07.9 Chest pain, unspecified
CPT/HCPCS: 36415; 80048; 83735; 85027; 85610

== ENCOUNTER 2016-09-03 13:24 | Emergency (ER) | payer MEDICARE, OTHER ==
[~2016-09-03] VITALS: Ht 152.4 cm; Wt 59.0 kg
[2016-09-03 13:36] VITALS: BP 140/66
--- NOTE | 2016-09-03 14:24 | PHYS DOC ---
General Chief Complaint: LACERATION/AVULSION Stated Complaint: RT THUMB LAC Time Seen by MD: 14:22 Source: patient Exam Limitations: no limitations Problems: History of Present Illness Initial Comments Pt is 71/F to ED c/o right thumb laceration. 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 Wouldn't stop bleeding at home so came for evaluation. Td not up to date, no pain on arrival and bleeding stopped. No other injury. Onset: just prior to arrival Severity: mild Pain/Injury Location: right thumb Method of Injury: incised Modifying Factors: worse with jarring, worse with movement Allergies: Coded Allergies: No Known Drug Allergies (Unverified , 11/26/15) Past Medical History Medical History: no pertinent history Surgical History: noncontributory Social History Smoker: non-smoker Alcohol: none Drugs: none Review of Systems Constitutional: denies chills, denies fever Respiratory: denies cough, denies shortness of breath Cardiovascular: denies chest pain, denies palpitations Gastrointestinal: denies nausea, denies vomiting Musculoskeletal: see HPI Skin: see HPI Physical Exam General Appearance: WD/WN, no apparent distress Cardiovascular/Respiratory: normal peripheral pulses, no respiratory distress Hand: laceration (very superficial flap laceration medial distal right thumb 1cm, edges no bleeding no FB/erythema/purulence nail involvement.) Neurologic/Tendon: normal sensation, normal motor functions, normal tendon functions, responds to pain, no evidence tendon injury Psychiatric: alert, oriented x 3 Skin: normal color, warm/dry Orders, Labs, Meds Tissue adhesive with good wound edge approximation, sutures contraindicated due to delicate flap. Tolerated well no complications see departure. Departure Time of Disposition: 14:23 Disposition: 01 HOME, SELF-CARE Diagnosis: right thumb laceration Condition: IMPROVED Patient Instructions: Tissue Adhesive Wound Care, VIS, Tetanus, Diphtheria (Td) ; Tetanus, Diphtheria, Pertussis (Tdap) - CDC Additional Instructions: Keep wound dry for 48 hours. Keep covered with sterile dressing until completely healed. Change dressing twice daily. OTC tylenol/ibuprofen as needed. Follow up with your doctor in 5-7 days for recheck. Return to ED with new or changing symptoms. ISAIAH RIGGINS DO September 03, 2016 14:24
[2016-09-03] MEDS ORDERED: DIPHTH,PERTUSS(ACELL),TET TOX 0.5 ML DISP.SYRIN. VAX IM ONE (15:00)
== END 2016-09-03 14:57 | disposition home or self-care (01) ==
LOC: ER 13:24
DX: S61.011A Laceration without foreign body of right thumb without damage to nail, initial encounter (principal); W26.0XXA Contact with knife, initial encounter; Y93.89 Activity, other specified; Y99.8 Other external cause status; Y92.098 Other place in other non-institutional residence as the place of occurrence of the external cause
CPT/HCPCS: 12001; 90471; 90715; 99283-25

== ENCOUNTER 2017-09-05 18:35 | Emergency (ER) | payer MEDICARE, OTHER ==
[~2017-09-05] VITALS: Ht 152.4 cm; Wt 52.6 kg
[2017-09-05 18:52] VITALS: BP 161/79
[2017-09-05] MEDS ORDERED: IBUP600T16 PO (19:21)
--- NOTE | 2017-09-05 19:33 | ED.ADGEN ---
Past History Past Medical History: Asthma, High Cholesterol, Hypertension, Hyperthyroid, Other Past Surgical History: Other Alcohol Use: None Drug Use: None Adult General HPI HPI Patient is a 72 year old female who presents with swelling to the right forearm. Patient states she has been working in her garden over the last couple of days doing strenuous labor for her baseline. Today, she noticed a area of swelling and bruising to the right proximal forearm, the volar aspect. She denies trauma. She states the area is not painful. She has never had similar symptoms in the past. No complaints of numbness or tingling in the upper extremity. Review of Systems Review of Systems Constitutional: Denies fever or chills Eyes: Denies change in visual acuity, redness HENT: Denies nasal congestion or sore throat Respiratory: Denies cough or shortness of breath Cardiovascular: No additional information not addressed in HPI GI: Denies abdominal pain, nausea, vomiting, bloody stools or diarrhea : Denies dysuria or hematuria Musculoskeletal: Denies back pain or joint pain Integument: Denies rash or skin lesions Neurologic: Denies headache, focal weakness or sensory changes Endocrine: Denies polyuria or polydipsia All other systems were reviewed and found to be within normal limits, except as documented in this note. Allergies Allergies Allergies Coded Allergies Type Severity Reaction Last Updated Verified No Known Drug Allergies 11/26/15 No Physical Exam Physical Exam Constitutional: Well developed, well nourished, no acute distress, non-toxic appearance. HENT: Normocephalic, atraumatic, bilateral external ears normal, oropharynx moist Eyes: PERRLA, EOMI, conjunctiva normal, no discharge. Neck: Normal range of motion, no tenderness Cardiovascular:Heart rate regular rhythm, no murmur Lungs & Thorax: Bilateral breath sounds clear to auscultation Skin: Warm, dry, no erythema, no rash Extremities: Over the proximal volar right forearm there is an area of about 5 cm of ecchymosis and swelling. There is no break in the skin. The area is not fluctuant. It is nontender to palpate. The area follows the path of the basophilic vein. Distal sensation to light touch is intact. She has 2+ radial pulses. Neurologic: Alert and oriented X 3, normal motor function, normal sensory function Psychologic: Affect normal, judgement normal, mood normal. Current Patient Data Vital Signs Vital Signs Date Time Temp Pulse Resp B/P (MAP) Pulse Ox O2 Delivery O2 Flow Rate FiO2 09/05/17 18:52 98.1 54 18 99 Room Air EKG EKG [] Radiology/Procedures Radiology/Procedures [] Course & Med Decision Making Course & Med Decision Making Pertinent Labs and Imaging studies reviewed. (See chart for details) Patient is seen and examined. Considerations for her differential diagnosis include superficial venous thrombosis, hematoma, varicosity. I performed a bedside ultrasound of the area in question. I could easily visualize the basilar vein which was patent both distal and proximal to the area of swelling. The vein becomes obscured immediately beneath the area of swelling. There were no fluid collections. Findings seem most consistent with hematoma. The patient gives a recent history of strenuous activity. There are no physical exam findings concerning for deep vein thrombosis in the arm. Plan is to apply ice and pressure. Patient is given ibuprofen for pain. There are no concerning findings for infectious process. She is advised to follow-up with her primary care doctor or return to the ER for any new or worsening symptoms. Patient is agreeable to this plan of care. Final Impression Final Impression Hematoma, likely traumatic Lisa Disclaimer Lisa Disclaimer This electronic medical record was generated, in whole or in part, using a voice recognition dictation system. MELVA BERTRAND DO September 05, 2017 19:33
== END 2017-09-05 19:35 | disposition home or self-care (01) ==
LOC: ER 18:35
DX: S50.11XA Contusion of right forearm, initial encounter (principal); J45.909 Unspecified asthma, uncomplicated; E78.00 Pure hypercholesterolemia, unspecified; I10 Essential (primary) hypertension; E05.90 Thyrotoxicosis, unspecified without thyrotoxic crisis or storm; X50.0XXA Overexertion from strenuous movement or load, initial encounter; Y93.89 Activity, other specified; Y99.8 Other external cause status; Y92.89 Other specified places as the place of occurrence of the external cause
CPT/HCPCS: 99284

== ENCOUNTER → 2017-12-18 | Outpatient (CLI) | payer MEDICARE, OTHER ==
[~2017-12-18] MED LIST changes: +IBUP600T16 PO
--- NOTE | 2017-12-18 17:12 | RAD ---
Examination: 2 views of the lumbar spine and 2 views of the bilateral hips and frontal view the pelvis HISTORY: History of pain in the back and hips COMPARISON: None available FINDINGS: The bilateral femoral heads within the acetabula. There is moderate joint space loss identified in the bilateral hip joints. The lumbar vertebral body heights are maintained. Moderate intervertebral disc height loss identified throughout the lumbar spine. Minimal anterior compression change of T12 vertebral body. IMPRESSION: 1. Moderate degenerative changes bilateral hip joints. 2. Moderate degenerative changes lumbar spine. Minimal anterior compression change of T12 vertebral body, age indeterminate. Electronically signed by: Ge Awan MD (12/18/2017 5:08 PM) [id number]
== END | disposition home or self-care (01) ==
LOC: PMG 14:53
PROVIDERS: ATTEND Physician Assistant
DX: M16.0 Bilateral primary osteoarthritis of hip (principal); M47.896 Other spondylosis, lumbar region; I10 Essential (primary) hypertension; E78.00 Pure hypercholesterolemia, unspecified; E03.9 Hypothyroidism, unspecified; Z87.891 Personal history of nicotine dependence; Z82.49 Family history of ischemic heart disease and other diseases of the circulatory system; Z82.3 Family history of stroke
CPT/HCPCS: 72100; 73521

== ENCOUNTER 2018-03-23 20:03 | Emergency (ER) | payer MEDICARE, OTHER ==
[~2018-03-23] VITALS: Ht 152.4 cm; Wt 54.4 kg
[~2018-03-23 20:03] MED LIST changes: -CHLO25TA PO; +CHLO25TA9 PO; -HYDR12.53 PO; +HYDR12.572 PO; -LOSA50TA2 PO; +LOSA50TA86 PO
[2018-03-23 20:44] VITALS: BP 202/88
[2018-03-23 20:49] LABS: BASO % 1 % (0-3); EOS # 0.5 x10^3/uL (0.0-0.7); EOS % 9 % (0-3); HEMATOCRIT 29.8 % (36.0-47.0); HEMOGLOBIN 10.2 g/dL (12.0-15.5); LYMPH # 1.9 x10^3/uL (1.0-4.8); LYMPH % 36 % (24-48); MEAN CORPUSCULAR HEMOGLOBIN 32 pg (25-35); MEAN CORPUSCULAR HGB CONC 34 g/dL (31-37); MEAN CORPUSCULAR VOLUME 94 fL (79-100); MONO # 0.5 x10^3/uL (0.0-1.1); MONO % 9 % (0-9); NEUT # 2.5 x10^3uL (1.8-7.7); NEUT % 47 % (31-73); PLATELET COUNT 134 x10^3/uL (140-400); RED BLOOD COUNT 3.17 x10^6/uL (3.50-5.40); RED CELL DISTRIBUTION WIDTH 12.6 % (11.5-14.5); WHITE BLOOD COUNT 5.4 x10^3/uL (4.0-11.0)
[2018-03-23 20:55] LABS: CALCIUM 8.3 mg/dL (8.5-10.1); CREATININE 0.9 mg/dL (0.6-1.0); GFR 61.2; MAGNESIUM 1.9 mg/dL (1.8-2.4); POTASSIUM 4.2 mmol/L (3.5-5.1)
[2018-03-23] MEDS ORDERED: IV NORMAL SALINE 1,000ML 1,000 ML IV ONE (21:15)
--- NOTE | 2018-03-24 06:13 | ED.ADGEN ---
Past History Past Medical History: Asthma, High Cholesterol, Hypertension, Hyperthyroid, Other Past Surgical History: Other Alcohol Use: None Drug Use: None Adult General Chief Complaint Chief Complaint Extremity muscle cramps HPI HPI Patient is a 72-year-old people presents with intermittent lower extremity muscle cramps involving toes, feet and calves. Symptom onset one day ago. Patient's been treating herself with Vics vapor rub and stretching. No other symptoms or complaints. Currently pain-free. He had bedside by her granddaughter.[] Review of Systems Review of Systems ROS as per HPI All other systems were reviewed and found to be within normal limits, except as documented in this note. Current Medications Current Medications Current Medications Medications (Trade) Dose Ordered Sig/Elisa Start Time Stop Time Status Last Admin Dose Admin Sodium Chloride 1,000 ml @ 1,000 mls/hr 1X ONCE 03/23/18 21:15 03/23/18 21:57 DC 03/23/18 21:06 1,000 MLS/HR Allergies Allergies Allergies Coded Allergies Type Severity Reaction Last Updated Verified No Known Drug Allergies 11/26/15 No Physical Exam Physical Exam Constitutional: Well developed, well nourished, no acute distress, non-toxic appearance. [] HENT: Normocephalic, atraumatic, bilateral external ears normal, oropharynx moist, no oral exudates, nose normal. [] Eyes: PERRLA, EOMI, conjunctiva normal, no discharge. [] Neck: Normal range of motion, no tenderness, supple, no stridor. [] Cardiovascular:Heart rate regular rhythm, no murmur [] Lungs & Thorax: Bilateral breath sounds clear to auscultation. [] Abdomen: Bowel sounds normal, soft, no tenderness. [] Skin: Warm, dry, no erythema, no rash. [] Back: No tenderness. [] Extremities: No tenderness,no edema. [] Neurologic: Alert and oriented X 3, normal motor function, normal sensory function, no focal deficits noted. [] Psychologic: Affect normal, judgement normal, mood normal. [] Current Patient Data Vital Signs Vital Signs Date Time Temp Pulse Resp B/P (MAP) Pulse Ox O2 Delivery O2 Flow Rate FiO2 03/23/18 20:44 63 19 202/88 (126) 95 Room Air 03/23/18 20:19 98.2 Lab Results Laboratory Tests Test 03/23/18 20:30 White Blood Count 5.4 x10^3/uL (4.0-11.0) Red Blood Count 3.17 x10^6/uL (3.50-5.40) L Hemoglobin 10.2 g/dL (12.0-15.5) L Hematocrit 29.8 % (36.0-47.0) L Mean Corpuscular Volume 94 fL (79-100) Mean Corpuscular Hemoglobin 32 pg (25-35) Mean Corpuscular Hemoglobin Concent 34 g/dL (31-37) Red Cell Distribution Width 12.6 % (11.5-14.5) Platelet Count 134 x10^3/uL (140-400) L Neutrophils (%) (Auto) 47 % (31-73) Lymphocytes (%) (Auto) 36 % (24-48) Monocytes (%) (Auto) 9 % (0-9) Eosinophils (%) (Auto) 9 % (0-3) H Basophils (%) (Auto) 1 % (0-3) Neutrophils # (Auto) 2.5 x10^3uL (1.8-7.7) Lymphocytes # (Auto) 1.9 x10^3/uL (1.0-4.8) Monocytes # (Auto) 0.5 x10^3/uL (0.0-1.1) Eosinophils # (Auto) 0.5 x10^3/uL (0.0-0.7) Basophils # (Auto) 0.0 x10^3/uL (0.0-0.2) Sodium Level 145 mmol/L (136-145) Potassium Level 4.2 mmol/L (3.5-5.1) Chloride Level 106 mmol/L (98-107) Carbon Dioxide Level 31 mmol/L (21-32) Anion Gap 8 (6-14) Blood Urea Nitrogen 26 mg/dL (7-20) H Creatinine 0.9 mg/dL (0.6-1.0) Estimated GFR (Cockcroft-Gault) 61.2 Glucose Level 82 mg/dL (70-99) Calcium Level 8.3 mg/dL (8.5-10.1) L Magnesium Level 1.9 mg/dL (1.8-2.4) EKG EKG [] Radiology/Procedures Radiology/Procedures [] Course & Med Decision Making Course & Med Decision Making Pertinent Labs and Imaging studies reviewed. (See chart for details) [Patient remains asymptomatic. IV fluids given for possible dehydration. Recommendations are for supportive care and PCP follow-up as needed.] Final Impression Final Impression [1. Muscle cramps] Dragon Disclaimer Dragon Disclaimer This electronic medical record was generated, in whole or in part, using a voice recognition dictation system. VANDANA ARELLANO DO Mar 24, 2018 06:13
== END 2018-03-23 21:55 | disposition home or self-care (01) ==
LOC: ER 20:03
DX: R25.2 Cramp and spasm (principal); J45.909 Unspecified asthma, uncomplicated; E78.00 Pure hypercholesterolemia, unspecified; E03.9 Hypothyroidism, unspecified
CPT/HCPCS: 36415; 80048; 83735; 85025; 99283; J7030

== ENCOUNTER → 2018-07-30 | Outpatient (CLI) | payer MEDICARE, OTHER ==
--- NOTE | 2018-07-30 17:41 | RAD ---
DATE: 07/30/2018 EXAM: MAMMO KAYA SCREENING BILATERAL HISTORY: Routine screening COMPARISON: 10/20/2015 and 06/26/2013 mammographic exams This study was interpreted with the benefit of Computerized Aided Detection (CAD). Breast Density: HETERO The breast parenchyma is heterogenously dense, which could reduce sensitivity of mammography. Breast parenchyma level C. FINDINGS: Vascular calcifications are present. No suspicious mass or distortion. No suspicious calcification cluster. IMPRESSION: Benign findings. BI-RADS CATEGORY: 1 NEGATIVE RECOMMENDED FOLLOW-UP: 12M 12 MONTH FOLLOW-UP PQRS compliance statement: Patient information was entered into a reminder system with a target due date in one year for the next mammogram. Mammography is a sensitive method for finding small breast cancers, but it does not detect them all and is not a substitute for careful clinical examination. A negative mammogram does not negate a clinically suspicious finding and should not result in delay in biopsying a clinically suspicious abnormality. "Our facility is accredited by the [employer] Mammography Program."
== END | disposition home or self-care (01) ==
LOC: MAMMO 13:05
PROVIDERS: ATTEND Physician Assistant
DX: Z12.31 Encounter for screening mammogram for malignant neoplasm of breast (principal); R92.8 Other abnormal and inconclusive findings on diagnostic imaging of breast
CPT/HCPCS: 77063; 77067

== ENCOUNTER 2019-11-26 19:16 | Emergency (ER) | payer MEDICARE, OTHER ==
[~2019-11-26] VITALS: Ht 152.4 cm; Wt 59.0 kg
[~2019-11-26 19:16] MED LIST changes: +MECL-75 PO; -MECL25TA3 PO; +MONT10TA80 PO; -MONT10TA9 PO
[2019-11-26 19:43] VITALS: BP 150/87
[2019-11-26] MEDS ORDERED: MECLIZINE 12.5 MG TABLET. PO ONE (19:45)
[2019-11-26] MEDS ORDERED: IV NORMAL SALINE 1,000ML 1,000 ML IV ONE (19:45)
--- NOTE | 2019-11-26 20:02 | PHYS DOC ---
Past History Past Medical History: Asthma, High Cholesterol, Hypertension, Hyperthyroid, Other Past Surgical History: Other Alcohol Use: None Drug Use: None General Adult EDM: Chief Complaint: syncope, fall HPI: HPI: 74 yo female presents after syncopal episode and fall yesterday. Patient was standing in her kitchen putting away groceries when she started to feel dizzy. She leaned on the table, but still had a syncopal episode. She woke up on the floor. She believes she hit the left side of her head. She has a small bruise on the left posterior side of her head. Her primary complaint today is that the right side of her neck is sore. She denies headache. She has been having dizzy spells more recently. She describes them as a lightheaded off-balance feeling. She recently had her medications increased including carvedilol and Ranexa. Patient also tells me she has a history of low hemoglobin for which she gets iron infusions. Patient denies fever or chills. Review of Systems: Review of Systems: Constitutional: Denies fever or chills Eyes: Denies change in visual acuity HENT: Right-sided neck paraspinal muscle soreness. Denies nasal congestion or sore throat Respiratory: Denies cough or shortness of breath Cardiovascular: Denies chest pain or edema GI: Denies abdominal pain, nausea, vomiting, bloody stools or diarrhea : Denies dysuria Musculoskeletal: Denies back pain or joint pain Integument: Denies rash Neurologic: Syncope denies headache, focal weakness or sensory changes Endocrine: Denies polyuria or polydipsia Lymphatic: Denies swollen glands Psychiatric: Denies depression or anxiety Heart Score: Risk Factors: Risk Factors: DM, Current or recent (<one month) smoker, HTN, HLP, family history of CAD, obesity. Risk Scores: Score 0 - 3: 2.5% MACE over next 6 weeks - Discharge Home Score 4 - 6: 20.3% MACE over next 6 weeks - Admit for Clinical Observation Score 7 - 10: 72.7% MACE over next 6 weeks - Early Invasive Strategies Current Medications: Current Meds: Current Medications Medications (Trade) Dose Ordered Sig/Elisa Start Time Stop Time Status Last Admin Dose Admin Meclizine HCl (Antivert) 25 mg 1X ONCE 11/26/19 19:45 11/26/19 19:55 DC Sodium Chloride 1,000 ml @ 1,000 mls/hr 1X ONCE 11/26/19 19:45 11/26/19 20:44 Allergies: Allergies: Allergies Coded Allergies Type Severity Reaction Last Updated Verified No Known Drug Allergies 11/26/15 No Physical Exam: PE: Constitutional: Well developed, well nourished, no acute distress, non-toxic appearance. [] HENT: Normocephalic, atraumatic, bilateral external ears normal, oropharynx moist, no oral exudates, nose normal. [] Eyes: PERRLA, EOMI, conjunctiva normal, no discharge. [] Neck: Normal range of motion, mild right sternocleidomastoid muscle tenderness, supple, no stridor. [] Cardiovascular: Heart rate regular rhythm, no murmur [] Lungs & Thorax: Bilateral breath sounds clear to auscultation [] Abdomen: Bowel sounds normal, soft, no tenderness, no masses, no pulsatile masses. [] Skin: Warm, dry, no erythema, no rash. [] Back: No tenderness, no CVA tenderness. [] Extremities: No tenderness, no cyanosis, no clubbing, ROM intact, no edema. [] Neurologic: Alert and oriented X 3, normal motor function, normal sensory function, no focal deficits noted. [] Psychologic: Affect normal, judgement normal, mood normal. [] Current Patient Data: Vital Signs: Vital Signs Date Time Temp Pulse Resp B/P (MAP) Pulse Ox O2 Delivery O2 Flow Rate FiO2 11/26/19 19:43 98.2 64 20 150/87 (108) 98 Room Air EKG: EKG: Sinus rhythm, rate 66, normal axis, no ST elevations or depressions. [] Radiology/Procedures: Radiology/Procedures: [] Impressions: CT scan of the head without contrast 11/26/2019 Clinical History: Fall. Head injury. Technique: Unenhanced, contiguous, 5 mm axial sections were obtained through the head. One or more of the following individualized dose reduction techniques were utilized for this study: 1. Automated exposure control. 2. Adjustment of the mA and/or kV according to patient size. 3. Use of iterative reconstruction technique. Findings: There is generalized parenchymal atrophy. Areas of decreased attenuation are seen within the periventricular and subcortical white matter of both cerebral hemispheres consistent with areas of small vessel ischemic disease. No acute parenchymal abnormality is seen. No extra-axial fluid collection is noted. No skull fracture is seen. Impression: No acute intracranial abnormality is seen. CT scan of the cervical spine without contrast 11/26/2019 Clinical history: Fall with neck injury. Technique: Unenhanced, contiguous, 0.625 mm axial sections were obtained through the cervical spine. Axial, coronal and sagittal reconstructed images were obtained. One or more of the following individualized dose reduction techniques were utilized for this study: 1. Automated exposure control. 2. Adjustment of the mA and/or kV according to patient size. 3. Use of iterative reconstruction technique. Findings: Sagittal and coronal reconstructed images demonstrate minimal lateral curvature of the cervical spine, convex to the left. There is slight reversal of the normal cervical lordosis. No fracture or subluxation of the cervical vertebrae is seen. Degenerative changes are seen involving the uncovertebral and facet joints of the mid and lower cervical disc spaces. Atherosclerotic calcifications are seen in the region carotid bifurcations. Impression: No fracture or subluxation of the cervical vertebra is identified. Electronically signed by: David Canchola MD (11/26/2019 8:41 PM) [id number] DICTATED AND SIGNED BY: DAVID CANCHOLA MD DATE: 11/26/192040 CC: VANDANA TARIQ DO; [facility] MCELROY ~ Course & Med Decision Making: Course & Med Decision Making Pertinent Labs and Imaging studies reviewed. (See chart for details) The patient's hemoglobin is 10.6 which is consistent with previous labs. The rest of her CBC is unremarkable. Her EKG is unremarkable. The CT of the head and cervical spine are negative for acute findings. Urinalysis is negative for infection. CMP shows an elevated creatinine of 1.4. This is baseline from a couple years ago. Her sodium is 129 which is also low compared to previous. She has been given a liter of normal saline and 25 of meclizine. She is not currently dizzy. She still has some intermittent nausea. I have advised that she follow-up with her primary care physician. She may need an EGD to see was going on with her esophagus and stomach related to the nausea. I will give her a prescription for Zofran for home. This could also be side effects from her medication changes. I spoke with the patient and I explained this to her daughter over the phone. They stated verbal understanding. She is stable for discharge at this time. [] Dragon Disclaimer: Dragon Disclaimer: This electronic medical record was generated, in whole or in part, using a voice recognition dictation system. Departure Departure: Impression: Primary Impression: Syncope and collapse Additional Impressions: Dizziness Nausea alone Disposition: HOME/RESIDENCE PRIOR TO ADM Condition: STABLE Referrals: [facility] MCELROY (PCP) Scripts Ondansetron (ONDANSETRON ODT) 4 Mg Tab.rapdis 1 TAB PO PRN Q6-8HRS PRN for VOMITING, #16 TAB Prov: VANDANA TARIQ DO 11/26/19 Justification of Admission: Justification of Admission: Justification of Admission Dx: N/A VANDANA TARIQ DO Nov 26, 2019 20:02
[2019-11-26 20:27] LABS: BASO % 0 % (0-3); EOS # 0.2 x10^3/uL (0.0-0.7); EOS % 3 % (0-3); HEMATOCRIT 30.7 % (36.0-47.0); HEMOGLOBIN 10.6 g/dL (12.0-15.5); LYMPH # 1.5 x10^3/uL (1.0-4.8); LYMPH % 26 % (24-48); MEAN CORPUSCULAR HEMOGLOBIN 33 pg (25-35); MEAN CORPUSCULAR HGB CONC 35 g/dL (31-37); MEAN CORPUSCULAR VOLUME 96 fL (79-100); MONO # 0.6 x10^3/uL (0.0-1.1); MONO % 10 % (0-9); NEUT # 3.5 x10^3uL (1.8-7.7); NEUT % 61 % (31-73); PLATELET COUNT 178 x10^3/uL (140-400); RED BLOOD COUNT 3.22 x10^6/uL (3.50-5.40); RED CELL DISTRIBUTION WIDTH 12.5 % (11.5-14.5); WHITE BLOOD COUNT 5.8 x10^3/uL (4.0-11.0)
[2019-11-26 20:34] LABS: CALCIUM 8.4 mg/dL (8.5-10.1); CREATININE 1.4 mg/dL (0.6-1.0); GFR 36.6
[2019-11-26 20:40] LABS: ALBUMIN 3.7 g/dL (3.4-5.0); ALBUMIN/GLOBULIN RATIO 1.2 (1.0-1.7); TOTAL BILIRUBIN 0.5 mg/dL (0.2-1.0); TOTAL PROTEIN 6.7 g/dL (6.4-8.2)
--- NOTE | 2019-11-26 20:44 | RAD ---
CT scan of the head without contrast 11/26/2019 Clinical History: Fall. Head injury. Technique: Unenhanced, contiguous, 5 mm axial sections were obtained through the head. One or more of the following individualized dose reduction techniques were utilized for this study: 1. Automated exposure control. 2. Adjustment of the mA and/or kV according to patient size. 3. Use of iterative reconstruction technique. Findings: There is generalized parenchymal atrophy. Areas of decreased attenuation are seen within the periventricular and subcortical white matter of both cerebral hemispheres consistent with areas of small vessel ischemic disease. No acute parenchymal abnormality is seen. No extra-axial fluid collection is noted. No skull fracture is seen. Impression: No acute intracranial abnormality is seen. CT scan of the cervical spine without contrast 11/26/2019 Clinical history: Fall with neck injury. Technique: Unenhanced, contiguous, 0.625 mm axial sections were obtained through the cervical spine. Axial, coronal and sagittal reconstructed images were obtained. One or more of the following individualized dose reduction techniques were utilized for this study: 1. Automated exposure control. 2. Adjustment of the mA and/or kV according to patient size. 3. Use of iterative reconstruction technique. Findings: Sagittal and coronal reconstructed images demonstrate minimal lateral curvature of the cervical spine, convex to the left. There is slight reversal of the normal cervical lordosis. No fracture or subluxation of the cervical vertebrae is seen. Degenerative changes are seen involving the uncovertebral and facet joints of the mid and lower cervical disc spaces. Atherosclerotic calcifications are seen in the region carotid bifurcations. Impression: No fracture or subluxation of the cervical vertebra is identified. Electronically signed by: David Walsh MD (11/26/2019 8:41 PM) [id number]
[2019-11-26 21:08] LABS: BACTERIA,URINE 0 /HPF (0-FEW); BILIRUBIN,URINE NEG (NEG); CLARITY,URINE CLEAR; COLOR,URINE YELLOW; GLUCOSE,URINE NEG (NEG); HYALINE CASTS, URINE FEW /HPF; NITRITE,URINE NEG (NEG); RBC,URINE OCC /HPF (0-2); SQUAMOUS EPITHELIAL CELL,UR FEW /LPF; UROBILINOGEN,URINE 0.2 mg/dL (0.2 mg/dL); WBC,URINE OCC /HPF (0-4)
[2019-11-26] MEDS ORDERED: ONDA4TAB12 PO (21:21)
--- NOTE | 2019-11-27 04:35 | EKG ---
[address] [address] Test Date: 2019-11-26 Test Time: 20:34:34 Pat Name: ANASTACIO NUGENT Department: Room: Gender: F Die Holder: : 1945 Requested By: VANDANA TARIQ Order Number: [id number] Reading MD: Measurements Intervals [place] Rate: 66 P: 60 NV: 172 QRS: 38 QRSD: 120 T: 57 QT: 482 QTc: 507 Interpretive Statements SINUS RHYTHM NORMAL ECG RI6.02 No previous ECG available for comparison
== END 2019-11-26 21:28 | disposition home or self-care (01) ==
LOC: ER 19:16
DX: R55 Syncope and collapse (principal); R42 Dizziness and giddiness; R11.0 Nausea; J45.909 Unspecified asthma, uncomplicated; E78.00 Pure hypercholesterolemia, unspecified; I10 Essential (primary) hypertension; E05.90 Thyrotoxicosis, unspecified without thyrotoxic crisis or storm; W18.39XA Other fall on same level, initial encounter; Y93.89 Activity, other specified; Y92.89 Other specified places as the place of occurrence of the external cause; Y99.8 Other external cause status
CPT/HCPCS: 36415; 70450; 72125; 80053; 81001; 84484; 85025; 93005; 96360; 99285; J7030; J8597

== ENCOUNTER 2019-12-27 04:09 | Inpatient (IN) | payer MEDICARE, OTHER ==
[~2019-12-27] VITALS: Ht 152.4 cm; Wt 57.8 kg
[~2019-12-27 04:09] MED LIST changes: +ONDA4TAB12 PO
--- NOTE | 2019-12-27 04:29 | PHYS DOC ---
Past History Past Medical History: Anemia, Asthma, High Cholesterol, Hypertension, Hyperthyroid, Hypothyroid, TIA, Other (CRYSTAL BURGER MD) Past Surgical History: Other (CRYSTAL BURGER MD) Alcohol Use: None Drug Use: None (CRYSTAL BURGER MD) General Adult HPI: HPI: Pt. reportedly increased dizziness, near syncope and weakness tonight per paramedics. Pt. Daughter was going to bring her in, but pt. would not get out of bed. Patient is a 74 year old female who presents with above hx and complaints dizziness, near syncope, and weakness. Patient reportedly had similar symptoms on previous ED visit last month. During that visit she had a syncopal episode. At that time she was having more dizzy spells and l was off balance. Patient normally follows with [facility] and Dr. Corrales. Has history of anemia iron deficiency. Patient currently on arrival minimal response to questions. Does move extremities to noxious stimuli. Does cross-react. Reportedly paramedics were called by the grand daughter who was in the home. Patient does have past medical history of asthma, elevated cholesterol, hypertension, hx. hyperthryoidism, hypothyroidism, anemia, and deconditioning. Pt. appears over sedated, falls asleep repeatedly during exam. Daughter in [place], gave some hx of her chronic problems. Grand Daughter advised her grandmother was complaining of ringing ears, dizzy and headache tonight. . Pt. ambulatory prior trip to ED. Pt. reported had gone to her bedroom to lay down for a while. When grand daughter got ready to take her to ED, she would not get up , so grand daughter c alled the ambulance. (CRYSTAL BURGER MD) Review of Systems: Review of Systems: Unable to evaluate - do to mental status change (CRYSTAL BURGER MD) Heart Score: HEART Score for Chest Pain: HEART Score for Chest Pain Response (Comments) Value History Slighlty/Non-Suspicious 0 ECG Nonspecific Repolarizatio 1 Age > 65 2 Risk Factors 1 or 2 Risk Factors 1 Total 4 Risk Factors: Risk Factors: DM, Current or recent (<one month) smoker, HTN, HLP, family history of CAD, obesity. Risk Scores: Score 0 - 3: 2.5% MACE over next 6 weeks - Discharge Home Score 4 - 6: 20.3% MACE over next 6 weeks - Admit for Clinical Observation Score 7 - 10: 72.7% MACE over next 6 weeks - Early Invasive Strategies (CRYSTAL BURGER MD) HEART Score for Chest Pain: HEART Score for Chest Pain Response (Comments) Value History Slighlty/Non-Suspicious 0 ECG Nonspecific Repolarizatio 1 Age > 65 2 Risk Factors >3 Risk Factors or Hx CAD 2 Troponin < Normal Limit 0 Total 5 Family History: Family History: Noncontributory to presentation (CRYSTAL BURGER MD) Current Medications: Current Meds: See nursing for home meds (CRYSTAL BURGER MD) Allergies: Allergies: Allergies Coded Allergies Type Severity Reaction Last Updated Verified No Known Drug Allergies 11/26/15 No (CRYSTAL BURGER MD) Physical Exam: PE: Constitutional: no acute distress, appears over sedated in appearance. [] HENT: Normocephalic, atraumatic, bilateral external ears normal, oropharynx moist, no oral exudates, nose normal. [] Eyes: PERRLA, EOMI, conjunctiva pale, no discharge. [] Neck: Normal range of motion, no tenderness, supple, no stridor. [] Cardiovascular:Bradycardia Heart rate regular rhythm, no murmur [] Lungs & Thorax: Bilateral breath sounds equal apex on auscultation [] Abdomen: Bowel sounds normal, soft, no tenderness, no masses, no pulsatile masses. [] Skin: Warm, dry, no erythema, no rash. Poor turgor. Back: No tenderness, no CVA tenderness. [] Extremities: No tenderness, no cyanosis, no clubbing, ROM intact, no edema. [] Neurologic: Minimal response to questions, does cross-react,, moves all extremities with noxious stimuli, Psychologic: Affect flat, judgement unable to determine, (CRYSTAL BURGER MD) EKG: EKG: My interpretation EKG shows a sinus bradycardia at 58 bpm. Slightly prolonged QT interval at 490 ms and a QTc interval 485 ms. No findings acute STEMI with contralateral changes. [] (CRYSTAL BURGER MD) EKG: Repeat EKG with normal sinus rhythm at 77 bpm, no axis deviation, prolonged QTC 509, new T wave inversion aVL, Q waves 1 and aVL which are seen on prior EKG (VOHSMARCIA DO) Radiology/Procedures: Radiology/Procedures: [[address] [address] IMAGING REPORT Signed PATIENT: ANASTACIO NUGENT ACCOUNT: [id number] : 1945 LOCATION: ER AGE: 74 SEX: F EXAM STATUS: REG ER ORD. PHYSICIAN: CRYSTAL BURGER MD REASON: syncope PROCEDURE: PORTABLE CHEST 1V EXAM: CHEST 1 VIEW History: Syncope COMPARISON: 07/30/2016 TECHNIQUE: Single portable radiograph of the chest FINDINGS: The cardiac silhouette is unremarkable. The lungs are clear bilaterally. The costophrenic sulci are clear and well demarcated. IMPRESSION: No radiographic evidence of an acute cardiopulmonary process. Electronically signed by: Ge Awan MD (12/27/2019 4:56 AM) [id number] DICTATED AND SIGNED BY: GE AWAN MD DATE: 12/27/19 0456 CC: CRYSTAL BURGER MD; HIWOT MCELROY PA ~ ][address] [address] IMAGING REPORT Signed PATIENT: ANASTACIO NUGENT ACCOUNT: [id number] : 1945 LOCATION: ER AGE: 74 SEX: F EXAM STATUS: REG ER ORD. PHYSICIAN: CRYSTAL BURGER MD REASON: HX FALL, VERTIGO, DIZZY.PT UNRESPONSIVE PROCEDURE: CT HEAD AND CERVICAL SPINE WO Examination: CT head and cervical spine CT HEAD INDICATION: Reason: HX FALL, VERTIGO, DIZZY.PT UNRESPONSIVE / Spl. Instructions: / History: COMPARISON: None Available. Exposure: One or more of the following individualized dose reduction techniques were utilized for this examination: 1. Automated exposure control 2. Adjustment of the mA and/or kV according to patient size 3. Use of iterative reconstruction technique TECHNIQUE: 5 mm contiguous axial images were obtained from the skull base to the vertex in both bone and soft tissue algorithm. FINDINGS: No abnormal attenuation within the brain parenchyma. No evidence of acute intracranial hemorrhage. No extra-axial fluid collections. No mass effect or midline shift. Ventricular size is appropriate. Basal cisterns are patent. No fractures identified.Michel-white differentiation is preserved.Globes and orbits are within normal limits. Paranasal sinuses and mastoid air cells are clear. IMPRESSION: No acute intracranial findings. CT CERVICAL SPINE INDICATION: Reason: HX FALL, VERTIGO, DIZZY.PT UNRESPONSIVE / Spl. Instructions: / History: COMPARISON: None Available. Technique: 2.5 mm contiguous axial images were obtained from the skull base through the cervicothoracic junction in both bone and soft tissue algorithm. Additional sagittal and coronal reconstructions were also performed. FINDINGS: Vertebral body height and alignment are maintained. Cervical lordosis is preserved. The lateral masses of C1 are aligned upon C2. No fractures identified. The bony canal is patent throughout. Mild intervertebral disc height loss identified cervical spine likely degenerative changes. The paraspinous soft tissues are unremarkable. Visualized intracranial contents are unremarkable. Lung apices are clear. IMPRESSION: 1. No acute fracture cervical spine. Correlate clinically. 2. Mild degenerative changes cervical spine. Electronically signed by: Ge Awan MD (12/27/2019 4:52 AM) [id number] DICTATED AND SIGNED BY: GE AWAN MD DATE: 12/27/19 0452 CC: CRYSTAL BURGER MD; HIWOT MCELROY ~ (CRYSTAL BURGER MD) Course & Med Decision Making: Course & Med Decision Making Pertinent Labs and Imaging studies reviewed. (See chart for details) Pt. []Impression: 1. Mental Status Change 2. Hx. Dizziness 3. Hypertension 4. Bradycardia (CRYSTAL BURGER MD) Course & Med Decision Making Concern for dizziness, uncontrolled hypertension and burning chest pain. Here one month ago for dizziness/syncope. Unable to ambulate in ed. Heart score 5. Has GI followup 01/15 for ebd/colonoscopy. BP responding to IV meds. Aspirin g iven. Will admit to medicine for further workup/eval. patient stable at time of admission and agrees with this plan. I have spoken with the patient and/or caregivers. I have explained the patient's condition, diagnosis and treatment plan based on the information available to me at this time. I have answered the patient's and/or caregivers questions and answered any concerns. The patient and/or caregivers have as good an understanding of the patient's diagnosis, condition and treatment plan as can be expected at this point. The patient has been stabilized within the capability of the emergency department. The patient will be transported for further care and management or will be moved to an observation or inpatient service. I have communicated with the staff or medical practitioner taking over this patient's care. (MARCIA CRUZ DO) Dragon Disclaimer: Dragon Disclaimer: This electronic medical record was generated, in whole or in part, using a voice recognition dictation system. (CRYSTAL BURGER MD) Departure Departure: Impression: Primary Impression: Dizziness Additional Impressions: Hypertension Chest pain Disposition: ADMITTED INPATIENT Admitting Physician: Tiburcio Castañeda (MARCIA CRUZ DO) Condition: STABLE Referrals: HIWOT MCELROY (PCP) Justification of Admission: Justification of Admission: Justification of Admission Dx: Yes Altered Mental Status: Altered Mental Status (CRYSTAL BURGER MD) Justification of Admission Dx: Yes (MARCIA CRUZ DO) Dragon Disclaimer This chart was dictated in whole or in part using Voice Recognition software in a busy, high-work load, and often noisy Emergency Department environment. It may contain unintended and wholly unrecognized errors or omissions. (CRYSTAL BURGER MD) CRYSTAL BURGER MD Dec 27, 2019 04:29 MARCIA CRUZ DO Dec 27, 2019 07:31
[2019-12-27] MEDS ORDERED: IV RINGERS SOLUTION,LACTATED 1,000 ML IV SCH (04:30)
--- NOTE | 2019-12-27 04:49 | EKG ---
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
--- NOTE | 2019-12-27 04:55 | RAD ---
Examination: CT head and cervical spine CT HEAD INDICATION: Reason: HX FALL, VERTIGO, DIZZY.PT UNRESPONSIVE / Spl. Instructions: / History: COMPARISON: None Available. Exposure: One or more of the following individualized dose reduction techniques were utilized for this examination: 1. Automated exposure control 2. Adjustment of the mA and/or kV according to patient size 3. Use of iterative reconstruction technique TECHNIQUE: 5 mm contiguous axial images were obtained from the skull base to the vertex in both bone and soft tissue algorithm. FINDINGS: No abnormal attenuation within the brain parenchyma. No evidence of acute intracranial hemorrhage. No extra-axial fluid collections. No mass effect or midline shift. Ventricular size is appropriate. Basal cisterns are patent. No fractures identified.Michel-white differentiation is preserved.Globes and orbits are within normal limits. Paranasal sinuses and mastoid air cells are clear. IMPRESSION: No acute intracranial findings. CT CERVICAL SPINE INDICATION: Reason: HX FALL, VERTIGO, DIZZY.PT UNRESPONSIVE / Spl. Instructions: / History: COMPARISON: None Available. Technique: 2.5 mm contiguous axial images were obtained from the skull base through the cervicothoracic junction in both bone and soft tissue algorithm. Additional sagittal and coronal reconstructions were also performed. FINDINGS: Vertebral body height and alignment are maintained. Cervical lordosis is preserved. The lateral masses of C1 are aligned upon C2. No fractures identified. The bony canal is patent throughout. Mild intervertebral disc height loss identified cervical spine likely degenerative changes. The paraspinous soft tissues are unremarkable. Visualized intracranial contents are unremarkable. Lung apices are clear. IMPRESSION: 1. No acute fracture cervical spine. Correlate clinically. 2. Mild degenerative changes cervical spine. Electronically signed by: Ge Awan MD (12/27/2019 4:52 AM) [id number]
--- NOTE | 2019-12-27 04:59 | RAD ---
EXAM: CHEST 1 VIEW History: Syncope COMPARISON: 07/30/2016 TECHNIQUE: Single portable radiograph of the chest FINDINGS: The cardiac silhouette is unremarkable. The lungs are clear bilaterally. The costophrenic sulci are clear and well demarcated. IMPRESSION: No radiographic evidence of an acute cardiopulmonary process. Electronically signed by: Ge Awan MD (12/27/2019 4:56 AM) [id number]
[2019-12-27 05:39] LABS: ANION GAP 8 (6-14); BLOOD UREA NITROGEN 19 mg/dL (7-20); CARBON DIOXIDE 27 mmol/L (21-32); CHLORIDE 99 mmol/L (98-107); CREATININE 1.1 mg/dL (0.6-1.0); GFR 48.3; GLUCOSE 161 mg/dL (70-99); POTASSIUM 3.9 mmol/L (3.5-5.1); SODIUM 134 mmol/L (136-145)
[2019-12-27 05:41] LABS: BASO % 0 % (0-3); EOS # 0.3 x10^3/uL (0.0-0.7); EOS % 5 % (0-3); HEMATOCRIT 28.8 % (36.0-47.0); HEMOGLOBIN 9.9 g/dL (12.0-15.5); LYMPH # 1.4 x10^3/uL (1.0-4.8); LYMPH % 23 % (24-48); MEAN CORPUSCULAR HEMOGLOBIN 33 pg (25-35); MEAN CORPUSCULAR HGB CONC 34 g/dL (31-37); MEAN CORPUSCULAR VOLUME 97 fL (79-100); MONO # 0.5 x10^3/uL (0.0-1.1); MONO % 8 % (0-9); NEUT # 4.2 x10^3uL (1.8-7.7); NEUT % 65 % (31-73); PLATELET COUNT 160 x10^3/uL (140-400); RED BLOOD COUNT 2.97 x10^6/uL (3.50-5.40); WHITE BLOOD COUNT 6.4 x10^3/uL (4.0-11.0)
[2019-12-27] MEDS ORDERED: clonazePAM 1 MG TABLET PO PRN (05:45)
[2019-12-27] MEDS ORDERED: cloNIDine TTS-2 1 PATCH PATCH TD ONE (05:45)
[2019-12-27] MEDS ORDERED: ASPIRIN 325 MG TABLET PO ONE (05:45)
[2019-12-27 05:51] LABS: ALBUMIN 3.3 g/dL (3.4-5.0); ALK PHOS 104 U/L (46-116); ALT (SGPT) 15 U/L (14-59); AST (SGOT) 22 U/L (15-37); DIRECT BILIRUBIN 0.2 mg/dL (0.0-0.2); LIPASE 169 U/L (73-393); MAGNESIUM 1.8 mg/dL (1.8-2.4); TOTAL BILIRUBIN 0.5 mg/dL (0.2-1.0); TOTAL PROTEIN 6.4 g/dL (6.4-8.2)
[2019-12-27 05:51] LABS: BARBITURATES NEG (NEG); BENZODIAZEPINES NEG (NEG); CANNABINOIDS NEG (NEG); COCAINE NEG (NEG); METHADONE NEG (NEG); OPIATES NEG (NEG); PHENCYCLIDINE NEG (NEG)
[2019-12-27 05:53] LABS: CLARITY,URINE CLEAR; COLOR,URINE YELLOW
[2019-12-27 05:54] LABS: BACTERIA,URINE FEW /HPF (0-FEW); BILIRUBIN,URINE NEG (NEG); GLUCOSE,URINE NEG (NEG); NITRITE,URINE NEG (NEG); RBC,URINE 0 /HPF (0-2); SQUAMOUS EPITHELIAL CELL,UR FEW /LPF; UROBILINOGEN,URINE 0.2 mg/dL (0.2 mg/dL); WBC,URINE 0 /HPF (0-4)
[2019-12-27 05:59] LABS: C REACTIVE PROTEIN < 0.5 mg/L (0-3.3)
[2019-12-27 06:00] LABS: AMPHETAMINE/METHAMPHETAMINE NEG (NEG)
[2019-12-27] MEDS ORDERED: hydrALAZINE 20 MG/ML VIAL. IV ONE (06:45)
[2019-12-27] MEDS ORDERED: PANTOPRAZOLE 40 MG TABLET. PO SCH (09:00)
[2019-12-27 09:17] VITALS: BP 125/69
[2019-12-27] MEDS ORDERED: RANO10004 PO (09:25)
[2019-12-27] MEDS ORDERED: FLU VACC QS 2020-21(6MOS+)/PF 0.5 ML SYRINGE. VAX IM ONE (09:45)
[2019-12-27] MEDS: MECLIZINE 12.5 MG TABLET. PO SCH ×3 (10:12→21:02)
[2019-12-27] MEDS: diazePAM 2 MG TABLET. PO SCH ×3 (10:12→21:02)
--- NOTE | 2019-12-27 10:20 | HP ---
ADMIT DATE: 12/27/2019 ATTENDING PHYSICIAN: Dr. Jeffries. CHIEF COMPLAINT: Dizziness, weakness and chest pain. HISTORY OF PRESENT ILLNESS: The patient is a 74-year-old female who lives independently. Her granddaughter checks in on her. She also has a son nearby. She has a longstanding history of benign positional vertigo. She had more dizziness. It is related to allergies and pollen. She had generalized weakness. She also had headaches, labile hypertension secondarily to her dizziness. She also had epigastric and substernal chest pain. She has been noted to take ibuprofen in the past. Her cardiac enzymes were negative on 2 separate draws. EKG is nondiagnostic. Clinically, she has vertigo. The obligatory CT of the head demonstrated no acute lesions and a chest x-ray was clear. She is admitted then for treatment of vertigo and her chest discomfort. I have ordered a proton pump inhibitor in addition to her meclizine. PAST MEDICAL HISTORY: Significant for asthma, allergic rhinitis, hyperlipidemia, hypertension, hypothyroidism, supposedly TIA and generalized debilitation. SOCIAL HISTORY: She is a nonsmoker, nondrinker. CURRENT MEDICINES: List include the following: Lipitor, calcium, methylcellulose, chlorthalidone, digestive enzyme, gemfibrozil, ibuprofen p.r.n., acidophilus, Synthroid, losartan, montelukast, Patanol eyedrops ____ and Zoloft 50 mg daily. ALLERGIES: She has no known drug allergies. REVIEW OF SYSTEMS: Significant for the dizziness. She has significant allergies. She has trouble with sinus congestion. No nausea. Chest pain is noncardiac in nature. No recent travel or COVID exposure. No fevers or chills. All other systems reviewed and turned to be negative. PHYSICAL EXAMINATION: GENERAL: When I saw her, this is a pleasant elderly female. VITAL SIGNS: Initial vital signs in the ED was 171/80. By the time she got to the floor, it was down to 138/63, pulse is 76 and regular, oxygen saturation 97% on room air. HEENT: Head is without trauma. Pupils are reactive. There is no nystagmus. Ears clear. NECK: Supple, no bruits. No stridor. LUNGS: Otherwise clear. CARDIOVASCULAR: Showed regular heart tones. No gallops. ABDOMEN: Soft, nontender, no organomegaly. Bowel sounds are hypoactive. EXTREMITIES: Showed no cyanosis. NEUROLOGIC: Focally intact. Speech is fluent. SKIN: Warm and dry. Tendon reflexes are symmetrical. LABORATORY STUDIES: Hemoglobin is 9.9 g/dL, white count 6400. Sodium a bit low at 134 mEq, potassium 3.9 mEq, creatinine is 1.1 mg/dL, nonfasting blood sugar of 161 mg/dL. Two sets of cardiac enzymes were within range and negative for coronary ischemia. The obligatory CT of the head and chest x-ray as noted. ASSESSMENT: 1. A 74-year-old female with acute vertigo. 2. History of benign positional vertigo. 3. Epigastric pain due to nonsteroidal anti-inflammatory drug use. 4. Labile hypertension. 5. Hyperlipidemia. 6. Hypothyroidism, on replacement. PLAN: 1. Admit to the inpatient unit. 2. Strict bed rest with bathroom privileges. 3. Scheduled meclizine. 4. I will get her on some antihistamine for her sinuses. 5. Continue blood pressure meds. 6. Diet as tolerated. MOOKIE JEFFRIES MD DR: GRANT/pauly JOB#: [id number] / [id number] HIWOT Pearl
--- NOTE | 2019-12-27 10:22 | NUR ---
The patient, ANASTACIO NUGENT, 74 y/o, F admitted by MOOKIE JEFFRIES MD, was given written information regarding hospital policies, unit procedures and contact persons. Valuables were checked and vital signs taken.
[2019-12-27] MEDS ORDERED: CARV25TA PO (11:07)
[2019-12-27] MEDS ORDERED: ASPI-630 PO (11:07)
[2019-12-27 11:25] VITALS: BP 188/71
[2019-12-27] MEDS ORDERED: ONDANSETRON ODT 4 MG TAB.RAPDIS PO PRN (12:00)
[2019-12-27] MEDS: SERTRALINE 50 MG TABLET. PO SCH (12:10)
[2019-12-27] MEDS: LOSARTAN 50 MG TABLET. PO SCH (12:10)
[2019-12-27] MEDS: LEVOTHYROXINE 50 MCG TABLET PO SCH (12:10)
--- NOTE | 2019-12-27 14:15 | EKG ---
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
[2019-12-27 16:29] VITALS: BP 145/77
[2019-12-27] MEDS: CARVEDILOL 12.5 MG TABLET PO SCH (17:46)
[2019-12-27 19:39] VITALS: BP 152/75
[2019-12-27] MEDS ORDERED: ATORVASTATIN CALCIUM 20 MG TABLET PO SCH (21:00)
[2019-12-27] MEDS: RANOLAZINE 500 MG TAB.ER.12H PO SCH (21:01)
[2019-12-27 23:37] VITALS: BP 149/77
[2019-12-28 05:57] VITALS: BP 145/78
[2019-12-28] MEDS: MECLIZINE 12.5 MG TABLET. PO SCH (08:00)
[2019-12-28] MEDS: SERTRALINE 50 MG TABLET. PO SCH (08:00)
[2019-12-28 08:01] VITALS: BP 145/78
[2019-12-28] MEDS: CARVEDILOL 12.5 MG TABLET PO SCH (08:01)
[2019-12-28] MEDS: LOSARTAN 50 MG TABLET. PO SCH (08:01)
[2019-12-28] MEDS: RANOLAZINE 500 MG TAB.ER.12H PO SCH (08:01)
[2019-12-28] MEDS: diazePAM 2 MG TABLET. PO SCH (08:02)
[2019-12-28] MEDS: LEVOTHYROXINE 50 MCG TABLET PO SCH (08:06)
[2019-12-28] MEDS ORDERED: ASPIRIN CHEWABLE 81 MG TABLET. PO SCH (09:00)
--- NOTE | 2019-12-28 10:05 | NUR ---
patient is discharged home with self care. Patient is stable at time of discharge. patient is given all discharge instructions and prescriptions for meclazine 25mg po tid, as well as nexium 40 mg po daily. patients iv is removed and patient ambulated of of unit accompanied by staff.
--- NOTE | 2019-12-28 10:18 | DS ---
DATE OF DISCHARGE: 12/28/2019 ATTENDING PHYSICIAN: Dr. Jeffries. FINAL DISCHARGE DIAGNOSES: 1. Acute vertigo, improved. 2. Benign positional vertigo by history. 3. Essential hypertension. 4. Atypical chest pain, coronary ischemia ruled out. 5. Hypothyroidism. 6. Essential hypertension. HISTORY AND PHYSICAL: This is a pleasant 74-year-old female who has been living independently. She has severe dizziness, anxiety, led to elevate blood pressure. She has had some localized epigastric pain, noncardiac in nature. She has been taking intermittent ibuprofen. She was admitted then with a diagnosis of vertigo and subsequent treatment. PHYSICAL EXAMINATION: Please see the dictated note. PERTINENT LABORATORY AND X-RAY STUDIES: Hemoglobin is maintained at 9.9 g/dL, white count 6400. Three sets of cardiac enzymes are negative for coronary ischemia. TSH was normal. Electrolytes, BUN and creatinine all within normal range. Transaminases are normal. Nonfasting blood sugar 160. Her creatinine is 1.1 mg/dL. Urine toxicology was unremarkable. Urinalysis was clear. The obligatory CT of the head showed no acute intracranial process. COURSE IN THE HOSPITAL: The patient was admitted with a diagnosis of vertigo. She was placed at bed rest with bathroom privileges. I did start her on scheduled meclizine and diazepam low doses with marked improvement. Blood pressure is controlled. She also responded to some oral Protonix. By the next hospital day, she was feeling better. Dizziness has resolved. She wanted to go home. I felt this is reasonable. Her vital signs showed a blood pressure of 145/78, oxygen saturation 98% on room air, pulse is 67 and regular, and her temperature was 98.1 degrees Fahrenheit. Her exam was unremarkable. She was able to ambulate with much improved gait and dizziness has resolved. Therefore, I recommended that she is safe to go home. I wrote a script for meclizine 25 mg p.o. t.i.d. for 7 more days; in addition, Nexium 40 mg p.o. daily. She should continue her scheduled Ranexa, aspirin, Lipitor, Coreg, losartan, and Zoloft, doses unchanged. She will follow up with her primary care physician as scheduled. The patient was then discharged from our hospital in stable condition with explicit instructions and followup care. MOOKIE JEFFRIES MD DR: GRANT/pauly JOB#: [id number] / [id number]
== END 2019-12-28 10:05 | disposition home or self-care (01) | DRG 392 ==
LOC: ER 04:23 → 1 SOUTH 07:48
PROVIDERS: ADMIT Hospitalist; ATTEND Hospitalist
DX: K21.9 Gastro-esophageal reflux disease without esophagitis (principal); R42 Dizziness and giddiness; E03.9 Hypothyroidism, unspecified; E78.00 Pure hypercholesterolemia, unspecified; E78.5 Hyperlipidemia, unspecified; F41.9 Anxiety disorder, unspecified; I10 Essential (primary) hypertension; J45.909 Unspecified asthma, uncomplicated; T39.395A Adverse effect of other nonsteroidal anti-inflammatory drugs [NSAID], initial encounter; H81.10 Benign paroxysmal vertigo, unspecified ear; Z79.899 Other long term (current) drug therapy; Z86.73 Personal history of transient ischemic attack (TIA), and cerebral infarction without residual deficits; D50.9 Iron deficiency anemia, unspecified
CPT/HCPCS: 36415; 70450; 71045; 72125; 80048; 80076; 80307; 81001; 82550; 83690; 83735; 83880; 84443; 84484; 85025; 85379; 85610; 85730; 86140; 90471; 93005; 96361; 96374; J0360; J7120; J8597; P9612; 90686; 99285-25

== ENCOUNTER → 2020-01-13 | Outpatient (CLI) | payer MEDICARE, OTHER ==
[~2020-01-13] MED LIST changes: +ASPI-630 PO; +CARV25TA PO; +RANO10004 PO
[2020-01-16 12:36] VITALS: BP 132/74
== END ==
LOC: LAB 14:30
PROVIDERS: ATTEND Nurse Anesthetist, Certified Registered
DX: Z01.812 Encounter for preprocedural laboratory examination (principal); Z12.11 Encounter for screening for malignant neoplasm of colon; Z20.828 Contact with and (suspected) exposure to other viral communicable diseases
CPT/HCPCS: U0003-CS

== ENCOUNTER → 2020-01-16 | Day surgery (SDC) | payer MEDICARE, OTHER ==
[~2020-01-16] MED LIST changes: +IPRATRPIUM/ALBUTEROL 0.5/2.5MG 3 ML NEBU. NEB PRN; +IV RINGERS SOLUTION,LACTATED 1,000 ML IV SCH; +LIDOCAINE 2% PF 5 ML VIAL. ONE; +MIDAZOLAM HCL PF 2 MG/2 ML VIAL. IV ONE; +ONDANSETRON PF 4 MG/2 ML VIAL. IV PRN; +PROPOFOL 10,000 MCG/ML (20ML) VIAL IV ONE
[2020-01-16 12:36] VITALS: BP 132/74
== END | disposition home or self-care (01) ==
LOC: SURG 09:53
PROVIDERS: ATTEND Internal Medicine Gastroenterology
DX: D50.9 Iron deficiency anemia, unspecified (principal); K64.8 Other hemorrhoids; K63.89 Other specified diseases of intestine; K21.00 Gastro-esophageal reflux disease with esophagitis, without bleeding; K31.89 Other diseases of stomach and duodenum; K29.50 Unspecified chronic gastritis without bleeding; K44.9 Diaphragmatic hernia without obstruction or gangrene; I12.9 Hypertensive chronic kidney disease with stage 1 through stage 4 chronic kidney disease, or unspecified chronic kidney disease; N18.4 Chronic kidney disease, stage 4 (severe); F41.9 Anxiety disorder, unspecified; E78.00 Pure hypercholesterolemia, unspecified; M19.90 Unspecified osteoarthritis, unspecified site; J45.909 Unspecified asthma, uncomplicated; Z98.890 Other specified postprocedural states; Z79.82 Long term (current) use of aspirin; Z79.899 Other long term (current) drug therapy
CPT/HCPCS: 43239; 45378; J2001; J2704; J7120

== ENCOUNTER → 2020-02-24 | Outpatient (CLI) | payer MEDICARE, OTHER ==
[2020-01-16 12:36] VITALS: BP 132/74
[~2020-02-24] MED LIST changes: -IPRATRPIUM/ALBUTEROL 0.5/2.5MG 3 ML NEBU. NEB PRN; -IV RINGERS SOLUTION,LACTATED 1,000 ML IV SCH; -LIDOCAINE 2% PF 5 ML VIAL. ONE; -MIDAZOLAM HCL PF 2 MG/2 ML VIAL. IV ONE; -ONDANSETRON PF 4 MG/2 ML VIAL. IV PRN; -PROPOFOL 10,000 MCG/ML (20ML) VIAL IV ONE
--- NOTE | 2020-02-24 15:47 | RAD ---
DATE: 02/24/2020 1:11 PM EXAM: MAMMO KAYA SCREENING BILATERAL HISTORY: Screening COMPARISON: 07/30/2018 Bilateral CC and MLO views of the breasts were performed. Bilateral breast tomosynthesis was performed in CC and MLO projections. This study was interpreted with the benefit of Computerized Aided Detection (CAD). FINDINGS: Breast Density: HETERO The breast parenchyma Is heterogeneously dense, which could reduce sensitivity of mammography. Breast parenchyma level C No suspicious masses, microcalcifications or architectural distortion is present to suggest malignancy in either breast. The visualized axillae are unremarkable. IMPRESSION: No mammographic evidence of malignancy. BI-RADS CATEGORY: 1 NEGATIVE RECOMMENDED FOLLOW-UP: 12M 12 MONTH FOLLOW-UP Annual screening mammography is recommended, unless clinically indicated sooner based on symptoms or change in physical exam. PQRS compliance statement: Patient information was entered into a reminder system with a target due date for the next mammogram. Mammography is a sensitive method for finding small breast cancers, but it does not detect them all and is not a substitute for careful clinical examination. A negative mammogram does not negate a clinically suspicious finding and should not result in delay in biopsying a clinically suspicious abnormality. "Our facility is accredited by the [employer] Mammography Program."
== END ==
LOC: MAMMO 13:05
PROVIDERS: ATTEND Physician Assistant
DX: Z12.31 Encounter for screening mammogram for malignant neoplasm of breast (principal)
CPT/HCPCS: 77063; 77067

== ENCOUNTER 2020-03-11 03:51 | Emergency (ER) | payer MEDICARE, OTHER ==
[~2020-03-11] VITALS: Ht 152.4 cm; Wt 57.0 kg
[2020-03-11 03:51] VITALS: BP 181/88
--- NOTE | 2020-03-11 04:06 | RAD ---
CT CODE STROKE HEAD WO Date: 03/11/2020 12:00 AM Clinical Indication: Reason: Difficulty speaking, weakness / Spl. Instructions: / History: Comparison: 12/27/2019. Technique: 5 mm axial tomographic images were obtained of the head without contrast. These were viewed on brain and bone windows. One or more of the following dose reduction techniques were utilized: Automated exposure control (AEC), Adjustment of mA and/or kV according to patient size, Use of iterative reconstruction technique such as ASiR, CT scan done according to ALARA and image gently/image wisely Findings: Mild generalized cerebral and cerebellar volume loss. Mild nonspecific periventricular hypoattenuation, most commonly seen with chronic small vessel ischemic disease. Calcified atherosclerosis of the bilateral cavernous and paraclinoid internal carotid arteries and intracranial vertebral arteries. No intra- or extra-axial mass or fluid collection. No acute hemorrhage. The ventricles are normal in size, shape, and morphology. The wagner-white matter junction is normal. The subarachnoid cisterns are patent. The visualized paranasal sinuses are normal. The visualized portions of the orbits and globes are normal. The mastoid air cells are clear. The clinical office technician topogram shows no lytic lesion or fracture. Impression: No acute hemorrhage or large territory wagner-white loss. FOR INTERNAL CODING PURPOSES Critical result: Findings discussed with MIKAELA JOYCE at 03/11/2020 4:01 AM. RESULT CODE: (C) Electronically signed by: Patrice Estrada MD (03/11/2020 4:03 AM) [facility]
--- NOTE | 2020-03-11 04:12 | EKG ---
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
--- NOTE | 2020-03-11 04:13 | PHYS DOC ---
Past History Past Medical History: Anemia, Asthma, High Cholesterol, Hypertension, Hyperthyroid, Hypothyroid, TIA Additional Past Medical Histor: Vertigo Past Surgical History: Other Additional Past Surgical Histo: right shoulder Smoking: Non-smoker Alcohol Use: None Drug Use: None General Adult EDM: Chief Complaint: ALTERED MENTAL STATUS HPI: HPI: 74-year-old female presents via EMS with report of headache and sensation her head is "feeling weird". Reports some dizziness. Reports ear ringing to left ear. Hx of vertigo. Denies any fever or chills. Denies known trauma. EMS became concerned that patient might be having a stroke given some altered mental status. Denies known sick contacts. Denies nausea or vomiting. Reports associated photophobia. Review of Systems: Review of Systems: Constitutional: Denies fever or chills Eyes: Denies redness; reports photophobia HENT: Denies nasal congestion or sore throat Respiratory: Denies cough or shortness of breath Cardiovascular: Denies chest pain or palpitations GI: Denies abdominal pain, nausea, or vomiting : Denies dysuria or hematuria Musculoskeletal: Denies back pain or neck pain Integument: Denies rash or skin lesions Neurologic: Reports headache and dizziness; denies focal weakness or sensory changes Complete systems were reviewed and found to be within normal limits, except as documented in this note. Current Medications: Current Meds: Current Medications Medications (Trade) Dose Ordered Sig/[facility] Start Time Stop Time Status Last Admin Dose Admin Sodium Chloride 1,000 ml @ 1,000 mls/hr Q1H ONCE 03/11/20 04:15 03/11/20 05:14 UNV Allergies: Allergies: Allergies Coded Allergies Type Severity Reaction Last Updated Verified No Known Drug Allergies 11/26/15 No Physical Exam: PE: Constitutional: Well developed, well nourished, no acute distress, non-toxic appearance HENT: Normocephalic, atraumatic Eyes: PERRL, EOMI, conjunctiva normal, no discharge, photophobia noted Neck: Normal range of motion, no tenderness, supple Lungs & Thorax: No respiratory distress, equal chest rise and fall Abdomen: Soft, no tenderness Skin: Warm, dry, no erythema, no rash Extremities: No tenderness, ROM intact, no edema Neurologic: Alert and oriented X 3, normal motor function, normal sensory function, no focal deficits noted Psychologic: Affect anxious, judgment normal Current Patient Data: Vital Signs: Vital Signs Date Time Temp Pulse Resp B/P (MAP) Pulse Ox O2 Delivery O2 Flow Rate FiO2 03/11/20 03:51 97.6 62 18 181/88 (119) 96 Room Air EKG: EKG: @0405 NSR at 63bpm, NO ST elevation, QRS 114ms, QT/QTc 470/485ms Radiology/Procedures: Radiology/Procedures: PROCEDURE: CT CODE STROKE HEAD WO CT CODE STROKE HEAD WO Date: 03/11/2020 12:00 AM Clinical Indication: Reason: Difficulty speaking, weakness / Spl. Instructions: / History: Comparison: 12/27/2019. Technique: 5 mm axial tomographic images were obtained of the head without contrast. These were viewed on brain and bone windows. One or more of the following dose reduction techniques were utilized: Automated exposure control (AEC), Adjustment of mA and/or kV according to patient size, Use of iterative reconstruction technique such as ASiR, CT scan done according to ALARA and image gently/image wisely Findings: Mild generalized cerebral and cerebellar volume loss. Mild nonspecific periventricular hypoattenuation, most commonly seen with chronic small vessel ischemic disease. Calcified atherosclerosis of the bilateral cavernous and paraclinoid internal carotid arteries and intracranial vertebral arteries. No intra- or extra-axial mass or fluid collection. No acute hemorrhage. The ventricles are normal in size, shape, and morphology. The wagner-white matter junction is normal. The subarachnoid cisterns are patent. The visualized paranasal sinuses are normal. The visualized portions of the orbits and globes are normal. The mastoid air cells are clear. The seo strategist topogram shows no lytic lesion or fracture. Impression: No acute hemorrhage or large territory wagner-white loss. FOR INTERNAL CODING PURPOSES Critical result: Findings discussed with MIKAELA JOYCE at 03/11/2020 4:01 AM. RESULT CODE: (C) Electronically signed by: Patrice Estrada MD (03/11/2020 4:03 AM) [facility] PROCEDURE: PORTABLE CHEST 1V PORTABLE CHEST 1V INDICATION: Reason: Weakness, headache / Spl. Instructions: / History: . COMPARISON STUDY: None. FINDINGS: Lungs: Normal lung volume. No pulmonary mass or consolidation. The tracheobronchial tree and hilar structures are normal. Pleura: No pleural effusion or pneumothorax. Heart and Mediastinum: The cardiomediastinal silhouette is normal. Atherosclerosis of the thoracic aorta. Bones and Soft Tissues: The bones and soft tissues are within normal limits. IMPRESSION: No acute cardiopulmonary process. Electronically signed by: Patrice Estrada MD (03/11/2020 4:33 AM) [facility] Course & Med Decision Making: Course & Med Decision Making Pertinent Labs and Imaging studies reviewed. (See chart for details) Patient presents as code stroke via EMS with report of headache and sensation that her head is "feeling weird ". Hx of vertigo. Reports some "ear ringing to left ear". Denies known trauma. Patient neurologically intact. NIHSS 0. EKG stable. Labs obtained and posted to chart. UA with signs of yeast cystitis. D iflucan given. CT head without acute process. Symptomatic treatment provided for headache with interval improvement of symptoms. Patient stable for discharge with outpatient follow-up with PCP/neurologist. Neurology referral provided. Discussed findings and plan with patient, who acknowledges understanding and agreement. Dragon Disclaimer: Dragon Disclaimer: This electronic medical record was generated, in whole or in part, using a voice recognition dictation system. Departure Departure: Impression: Primary Impression: Dizziness Additional Impressions: Headache Qualified Codes: R51.9 - Headache, unspecified Yeast cystitis Tinnitus Qualified Codes: H93.12 - Tinnitus, left ear Disposition: 01 DC HOME SELF CARE/HOMELESS Condition: STABLE Referrals: HIWOT MCELROY (PCP) JUDIT VELASCO MD Patient Instructions: Dizziness, [id number], Headache, FAQs, Tinnitus, Vertigo, [id number] Additional Instructions: May continue previously prescribed Antivert as prescribed. Scripts Prednisone (PREDNISONE) 20 Mg Tablet 2 TAB PO DAILY for Tinnitis, #10 TAB Prov: MIKAELA JOYCE DO 03/11/20 Ondansetron (ONDANSETRON ODT) 4 Mg Tab.rapdis 1 TAB PO PRN Q6-8HRS PRN for NAUSEA, #16 TAB Prov: MIKAELA JOYCE DO 03/11/20 Butalb/Acetaminophen/Caffeine ([id number] 50-325-40) 1 Each Tablet 1 EACH PO Q6HRS PRN for HEADACHE, #14 TAB Prov: MIKAELA JOYCE DO 03/11/20 NIHSS - ED NIH Stroke Scale: NIH Stroke Scale Response (Comments) Value Level of Consciousness: 0 Alert/Responsive 0 LOC Questions: 0 Answers both correctly 0 LOC Commands: 0 Performs both tasks 0 Best Gaze: 0 Normal 0 Visual: 0 No visual loss 0 Facial Palsy: 0 Normal, symmetrical 0 Motor - Left Arm 0 No drift 0 Motor - Right Arm 0 No drift 0 Motor - Left Leg 0 No drift 0 Motor: Right Leg 0 No drift 0 Limb Ataxia: 0 Absent 0 Sensory: 0 No loss 0 Best Language: 0 Normal 0 Dysathria: 0 Normal 0 Extinction and Inattention: 0 Normal 0 Total 0 MIKAELA JOYCE DO Mar 11, 2020 04:13
[2020-03-11] MEDS ORDERED: IV NORMAL SALINE 1,000ML 1,000 ML IV ONE (04:30)
[2020-03-11] MEDS ORDERED: IV NORMAL SALINE 1,000ML 1,000 ML IV SCH (04:30)
--- NOTE | 2020-03-11 04:37 | RAD ---
PORTABLE CHEST 1V INDICATION: Reason: Weakness, headache / Spl. Instructions: / History: . COMPARISON STUDY: None. FINDINGS: Lungs: Normal lung volume. No pulmonary mass or consolidation. The tracheobronchial tree and hilar structures are normal. Pleura: No pleural effusion or pneumothorax. Heart and Mediastinum: The cardiomediastinal silhouette is normal. Atherosclerosis of the thoracic aorta. Bones and Soft Tissues: The bones and soft tissues are within normal limits. IMPRESSION: No acute cardiopulmonary process. Electronically signed by: Patrice Estrada MD (03/11/2020 4:33 AM) [facility]
[2020-03-11 04:39] LABS: BASO % 1 % (0-3); EOS # 0.3 x10^3/uL (0.0-0.7); EOS % 8 % (0-3); HEMATOCRIT 28.5 % (36.0-47.0); HEMOGLOBIN 9.5 g/dL (12.0-15.5); LYMPH # 1.6 x10^3/uL (1.0-4.8); LYMPH % 37 % (24-48); MEAN CORPUSCULAR HEMOGLOBIN 33 pg (25-35); MEAN CORPUSCULAR HGB CONC 33 g/dL (31-37); MEAN CORPUSCULAR VOLUME 99 fL (79-100); MONO # 0.4 x10^3/uL (0.0-1.1); MONO % 9 % (0-9); NEUT % 46 % (31-73); PLATELET COUNT 163 x10^3/uL (140-400); RED BLOOD COUNT 2.89 x10^6/uL (3.50-5.40); RED CELL DISTRIBUTION WIDTH 12.6 % (11.5-14.5); WHITE BLOOD COUNT 4.3 x10^3/uL (4.0-11.0)
[2020-03-11 04:53] LABS: CALCIUM 8.5 mg/dL (8.5-10.1); GFR 53.9; POTASSIUM 3.7 mmol/L (3.5-5.1)
[2020-03-11 04:58] LABS: ALBUMIN 3.4 g/dL (3.4-5.0); ALBUMIN/GLOBULIN RATIO 1.2 (1.0-1.7); MAGNESIUM 1.8 mg/dL (1.8-2.4); TOTAL BILIRUBIN 0.5 mg/dL (0.2-1.0); TOTAL PROTEIN 6.2 g/dL (6.4-8.2)
[2020-03-11] MEDS ORDERED: BUTALB/APAP/CAFEIN 50/325/40MG TABLET. PO ONE (05:00)
[2020-03-11] MEDS ORDERED: ASPIRIN ENTERIC COATED 325 MG TABLET.DR. PO ONE (05:00)
[2020-03-11] MEDS ORDERED: BUTA1TAB23 PO (05:11)
[2020-03-11] MEDS ORDERED: ONDA4TAB12 PO (05:11)
[2020-03-11 05:34] LABS: BILIRUBIN,URINE NEG (NEG); CLARITY,URINE CLEAR; COLOR,URINE YELLOW; GLUCOSE,URINE NEG (NEG); NITRITE,URINE NEG (NEG); UROBILINOGEN,URINE 0.2 mg/dL (0.2 mg/dL)
[2020-03-11 05:35] LABS: BACTERIA,URINE 0 /HPF (0-FEW); RBC,URINE RARE /HPF (0-2); YEAST,URINE PRESENT /HPF
[2020-03-11] MEDS ORDERED: PRED20TA PO (05:58)
[2020-03-11] MEDS ORDERED: FLUCONAZOLE 100 MG TABLET. PO ONE (06:00)
== END 2020-03-11 08:25 | disposition home or self-care (01) ==
LOC: ER 03:51
DX: B37.41 Candidal cystitis and urethritis (principal); R51.9 Headache, unspecified; R42 Dizziness and giddiness; H93.12 Tinnitus, left ear; J45.909 Unspecified asthma, uncomplicated; E78.00 Pure hypercholesterolemia, unspecified; I10 Essential (primary) hypertension; E03.9 Hypothyroidism, unspecified; E05.90 Thyrotoxicosis, unspecified without thyrotoxic crisis or storm; Z86.73 Personal history of transient ischemic attack (TIA), and cerebral infarction without residual deficits; Z86.2 Personal history of diseases of the blood and blood-forming organs and certain disorders involving the immune mechanism; Z79.899 Other long term (current) drug therapy
CPT/HCPCS: 36415; 70450; 71045; 80053; 81001; 82140; 82553; 82947; 83735; 84484; 85025; 85610; 85730; 87086; 93005; 96360; 99285; J7030

== ENCOUNTER 2020-04-01 03:11 | Emergency (ER) | payer MEDICARE, OTHER ==
[~2020-04-01] VITALS: Ht 152.4 cm; Wt 58.0 kg
[~2020-04-01 03:11] MED LIST changes: +BUTA1TAB23 PO; +PRED20TA PO
[2020-04-01 03:42] VITALS: BP 122/64
--- NOTE | 2020-04-01 03:44 | EKG ---
[address] [address] Test Date: 2020-04-01 Test Time: 03:28:23 Pat Name: ANASTACIO NUGENT Department: Room: Gender: F Certified Pedorthotist: : 1945 Requested By: NAA CLIFFORD Order Number: [id number] Reading MD: Measurements Intervals [place] Rate: 63 P: 51 NC: 178 QRS: 26 QRSD: 118 T: 66 QT: 390 QTc: 402 Interpretive Statements SINUS RHYTHM NORMAL ECG RI6.02 No previous ECG available for comparison
--- NOTE | 2020-04-01 03:48 | RAD ---
Single view chest dated 04/01/2020. Comparison made to 03/11/2020. CLINICAL INDICATION: Dizziness and weakness. FINDINGS: single upright portable exam performed. Heart and mediastinal contours are stable. Lungs are hypoinf lated but otherwise clear. No consolidation or pleural effusion. No pneumothorax. IMPRESSION: No acute radiographic abnormality. Electronically signed by: Mert Macario MD (04/01/2020 3:46 AM) [facility]
[2020-04-01 04:10] LABS: BASO % 0 % (0-3); EOS # 0.1 x10^3/uL (0.0-0.7); EOS % 2 % (0-3); HEMATOCRIT 26.5 % (36.0-47.0); HEMOGLOBIN 8.9 g/dL (12.0-15.5); LYMPH % 12 % (24-48); MEAN CORPUSCULAR HEMOGLOBIN 34 pg (25-35); MEAN CORPUSCULAR HGB CONC 34 g/dL (31-37); MEAN CORPUSCULAR VOLUME 99 fL (79-100); MONO # 0.3 x10^3/uL (0.0-1.1); MONO % 4 % (0-9); NEUT # 6.6 x10^3uL (1.8-7.7); NEUT % 82 % (31-73); PLATELET COUNT 156 x10^3/uL (140-400); RED BLOOD COUNT 2.67 x10^6/uL (3.50-5.40); RED CELL DISTRIBUTION WIDTH 12.5 % (11.5-14.5); WHITE BLOOD COUNT 8.1 x10^3/uL (4.0-11.0)
[2020-04-01] MEDS ORDERED: METOCLOPRAMIDE 10 MG TABLET PO ONE (04:15)
[2020-04-01 04:19] LABS: CALCIUM 8.4 mg/dL (8.5-10.1); CREATININE 1.2 mg/dL (0.6-1.0); GFR 43.6; POTASSIUM 3.7 mmol/L (3.5-5.1)
[2020-04-01 04:26] LABS: ALBUMIN 3.7 g/dL (3.4-5.0); ALBUMIN/GLOBULIN RATIO 1.3 (1.0-1.7); TOTAL BILIRUBIN 0.6 mg/dL (0.2-1.0); TOTAL PROTEIN 6.5 g/dL (6.4-8.2)
[2020-04-01] MEDS ORDERED: SCOPOLAMINE 1.5MG PATCH. TD ONE (04:30)
[2020-04-01] MEDS ORDERED: LORA0.5T21 PO (05:54)
--- NOTE | 2020-04-01 05:55 | PHYS DOC ---
Past History Past Medical History: Anemia, Asthma, High Cholesterol, Hypertension, Hyperthyroid, Hypothyroid, TIA Additional Past Medical Histor: Vertigo Past Surgical History: Other Additional Past Surgical Histo: right shoulder Smoking: Non-smoker Alcohol Use: None Drug Use: None Adult General Chief Complaint Chief Complaint: DIZZY/LIGHT HEADED [facility] HPI Patient is 75-year-old female who presents to the emergency room complaining of dizziness. Patient has a long history of dizziness. She is currently an physical therapy for this and her family believes that perhaps she is on meclizine for this. They are concerned that this may be due to anxiety as she typically gets herself worked up and then starts to feel dizzy. She states that this feels very similar to prior episodes. She denies difficulty with walking. She did not fall. She has had multiple work-ups for this in the past. She denies any chest pain or shortness of breath. She does not have any nausea, vomiting, diarrhea. Review of Systems Review of Systems Complete ROS is negative unless otherwise documented in HPI Current Medications Current Medications Current Medications Medications (Trade) Dose Ordered Sig/[facility] Start Time Stop Time Status Last Admin Dose Admin Metoclopramide HCl (Reglan) 10 mg 1X ONCE 04/01/20 04:15 04/01/20 04:19 DC 04/01/20 04:59 10 MG Scopolamine (Transderm-Scop) 1 patch 1X ONCE 04/01/20 04:30 04/01/20 04:31 DC 04/01/20 04:59 1 PATCH Allergies Allergies Allergies Coded Allergies Type Severity Reaction Last Updated Verified No Known Drug Allergies 11/26/15 No Physical Exam Physical Exam General: Awake, alert, NAD. Well Nourished, well hydrated. Cooperative HEENT: Atraumatic, EOMI, PERRL, airway patent, moist oral mucosa Neck: Supple, trachea midline Respiratory: CTA bilaterally, normal effort, no wheezing/crackles CV: RRR, no murmur, cap refill <2 GI: Soft, nondistended, nontender, no masses MSK: No obvious deformities Skin: Warm, dry, intact Neuro: A&O x3, speech NL, sensory and motor grossly intact, no focal deficits, cerebellar testing normal, normal gait Psych: Normal affect, normal mood, not suicidal or homicidal Current Patient Data Vital Signs Vital Signs Date Time Temp Pulse Resp B/P (MAP) Pulse Ox O2 Delivery O2 Flow Rate FiO2 04/01/20 03:42 96.6 63 16 122/64 (83) 97 Room Air Lab Results Laboratory Tests Test 04/01/20 03:52 White Blood Count 8.1 x10^3/uL (4.0-11.0) Red Blood Count 2.67 x10^6/uL (3.50-5.40) L Hemoglobin 8.9 g/dL (12.0-15.5) L Hematocrit 26.5 % (36.0-47.0) L Mean Corpuscular Volume 99 fL (79-100) Mean Corpuscular Hemoglobin 34 pg (25-35) Mean Corpuscular Hemoglobin Concent 34 g/dL (31-37) Red Cell Distribution Width 12.5 % (11.5-14.5) Platelet Count 156 x10^3/uL (140-400) Neutrophils (%) (Auto) 82 % (31-73) H Lymphocytes (%) (Auto) 12 % (24-48) L Monocytes (%) (Auto) 4 % (0-9) Eosinophils (%) (Auto) 2 % (0-3) Basophils (%) (Auto) 0 % (0-3) Neutrophils # (Auto) 6.6 x10^3uL (1.8-7.7) Lymphocytes # (Auto) 1.0 x10^3/uL (1.0-4.8) Monocytes # (Auto) 0.3 x10^3/uL (0.0-1.1) Eosinophils # (Auto) 0.1 x10^3/uL (0.0-0.7) Basophils # (Auto) 0.0 x10^3/uL (0.0-0.2) Sodium Level 135 mmol/L (136-145) L Potassium Level 3.7 mmol/L (3.5-5.1) Chloride Level 98 mmol/L (98-107) Carbon Dioxide Level 28 mmol/L (21-32) Anion Gap 9 (6-14) Blood Urea Nitrogen 29 mg/dL (7-20) H Creatinine 1.2 mg/dL (0.6-1.0) H Estimated GFR (Cockcroft-Gault) 43.6 BUN/Creatinine Ratio 24 (6-20) H Glucose Level 147 mg/dL (70-99) H Calcium Level 8.4 mg/dL (8.5-10.1) L Total Bilirubin 0.6 mg/dL (0.2-1.0) Aspartate Amino Transferase (AST) 25 U/L (15-37) Alanine Aminotransferase (ALT) 15 U/L (14-59) Alkaline Phosphatase 93 U/L (46-116) Troponin I Quantitative 0.019 ng/mL (0-0.055) Total Protein 6.5 g/dL (6.4-8.2) Albumin 3.7 g/dL (3.4-5.0) Albumin/Globulin Ratio 1.3 (1.0-1.7) EKG EKG [] Radiology/Procedures Radiology/Procedures [] Heart Score Risk Factors: Risk Factors: DM, Current or recent (<one month) smoker, HTN, HLP, family history of CAD, obesity. Risk Scores: Risk Factors: DM, Current or recent (<one month) smoker, HTN, HLP, family history of CAD, obesity. Course & Med Decision Making Course & Med Decision Making Pertinent Labs and Imaging studies reviewed. (See chart for details) Patient is 75-year-old female who presents to the emergency room with dizziness. Patient has been here several times over the last few months for similar symptoms. She is also been following with her primary care doctor for this. This feels similar to prior episodes. Patient is generally well-appearing. Work-up was ordered and is normal at this time. Patient is feeling better with symptomatic care. We will discharge her home to follow-up with her primary care physician. She has ongoing physical therapy. Patient's test results and vitals while in the ED were fully reviewed and discussed with the patient. Patient is stable and at this time does not need admission to the hospital. We have discussed strict return precautions and the importance of following up with their Primary Care Physician. Patient stated understanding and was given an opportunity to ask any questions. Patient is in agreement with plan. Dragon Disclaimer Dragon Disclaimer This electronic medical record was generated, in whole or in part, using a voice recognition dictation system. Departure Departure: Impression: Primary Impression: Benign paroxysmal positional vertigo Additional Impression: Anxiety Disposition: 01 DC HOME SELF CARE/HOMELESS Condition: STABLE Referrals: HIWOT MCELROY (PCP) Patient Instructions: Vertigo Scripts Lorazepam (ATIVAN ) 0.5 Mg Tablet 0.5 MG PO PRN TID PRN for ANXIETY, #20 TAB Prov: NAA CLIFFORD MD 04/01/20 Problem Qualifiers NAA CLIFFORD MD Apr 01, 2020 05:54
== END 2020-04-01 06:00 | disposition home or self-care (01) ==
LOC: ER 03:11
DX: H81.10 Benign paroxysmal vertigo, unspecified ear (principal); F41.8 Other specified anxiety disorders; J45.909 Unspecified asthma, uncomplicated; E78.00 Pure hypercholesterolemia, unspecified; I10 Essential (primary) hypertension; E05.90 Thyrotoxicosis, unspecified without thyrotoxic crisis or storm; E03.9 Hypothyroidism, unspecified; I25.2 Old myocardial infarction; Z98.890 Other specified postprocedural states
CPT/HCPCS: 36415; 71045; 80053; 84484; 85025; 93005; 99285

== ENCOUNTER → 2020-09-01 | Outpatient (CLI) | payer MEDICARE, OTHER ==
[~2020-09-01] MED LIST changes: -ACYC800T PO; +ACYC800T88 PO; +LORA0.5T21 PO
--- NOTE | 2020-09-01 14:42 | RAD ---
EXAM: Right foot, 3 views. HISTORY: Fall. COMPARISON: None. FINDINGS: 3 views of the right foot are obtained. There is deformity of the first distal phalanx, lik pepe developmental or due to a healed fracture. There is no convincing acute fracture. There is enthes opathy at the Achilles tendon insertion. IMPRESSION: No acute osseous finding. Electronically signed by: Zuleika Barraza MD (09/01/2020 2:40 PM) [id number]
== END ==
LOC: DXRAD 10:57
PROVIDERS: ATTEND Physician Assistant
DX: M21.6X1 Other acquired deformities of right foot (principal); M76.61 Achilles tendinitis, right leg
CPT/HCPCS: 73630

== ENCOUNTER → 2021-03-08 | Outpatient (CLI) | payer MEDICARE, OTHER ==
--- NOTE | 2021-03-08 17:45 | RAD ---
INDICATION: Screening for osteopenia/osteoporosis. Postmenopausal follow-up COMPARISON: None. TECHNIQUE: Bone densitometry was performed through the lumbar spine and proximal femur. IMPRESSION: Lumbar Spine: BMD: 1.07 T-Score: -0.9 Range: Lower limits of normal on border with osteopenia. Decreased by 6 percent from baseline Proximal Femur: BMD: 0.96 T-Score: 0.1 Range: Normal. Decreased by 8 percent from baseline World Health Organization Criteria for Bone Density: T-Score: > -1.0: Normal Range < -1.0 to -2.5: Osteopenic Range < -2.5: Osteoporotic Range Electronically signed by: Harry Randle MD (03/08/2021 5:43 PM) [id number]
--- NOTE | 2021-03-09 12:48 | RAD ---
BILATERAL DIGITAL SCREENING 2-D AND 3-D MAMMOGRAM INDICATION: Routine screening. COMPARISON: 02/24/2020, 07/30/2018, 10/20/2015 Interpretation was made using CAD. FINDINGS: Breast Density: The breasts are heterogeneously dense, which may obscure small masses. RIGHT BREAST: No suspicious masses, calcifications or areas of architectural distortion are seen. LEFT BREAST: No suspicious masses, calcifications or areas of architectural distortion are seen. IMPRESSION: 1. No imaging evidence of malignancy. ASSESSMENT: BI-RADS 1: Negative. RECOMMENDATION: Routine annual screening mammogram. The facility will notify the patient of the results via mail. Patient information will be entered int o the mammography reminder system with a target recall date for the next mammogram. A reminder letter will be generated by the facility. Electronically signed by: Fran Noel MD (03/09/2021 12:46 PM) [id number]
== END ==
LOC: MAMMO 14:03
PROVIDERS: ATTEND Physician Assistant
DX: Z12.31 Encounter for screening mammogram for malignant neoplasm of breast (principal); Z13.820 Encounter for screening for osteoporosis; N64.89 Other specified disorders of breast; Z78.0 Asymptomatic menopausal state
CPT/HCPCS: 77063; 77067; 77080

== ENCOUNTER 2021-06-03 19:03 | Emergency (ER) | payer MEDICARE, OTHER ==
[~2021-06-03] VITALS: Ht 152.4 cm; Wt 60.0 kg
--- NOTE | 2021-06-03 19:19 | PHYS DOC ---
Past History Past Medical History: Anemia, Asthma, High Cholesterol, Hypertension, Hyperthyroid, Hypothyroid, TIA Additional Past Medical Histor: Vertigo Past Surgical History: Other Additional Past Surgical Histo: right shoulder Smoking: Non-smoker Alcohol Use: None Drug Use: None General Adult EDM: Chief Complaint: LOWER EXTREMITY SWELLING HPI: HPI: ".. I am having some swelling in my legs.. more in this Lt one... I used to be on a water pill for blood pressure and swelling.. but they took me off because it work too well.."..I got some cramping in this Lt. leg too..." Pt. " She had swelling before.. but this is more than usual.. especially in the Lt. foot" (Daughter) Patient is a 76 year old female who presents with above hx and complaints of leg edema. Patient does have more swelling in left leg and pitting edema to the level of ankle. No obvious cording appreciated in the lower leg. Does have some calf tenderness. No history of trauma patient denies any history of heart failure does have a history of hypertension, asthma, allergic rhinitis, hyperlipidemia, hypothyroidism, TIA, dizzy spells, vertigo, chest pain, GERD, dry eyes and arthritis. No travel. No specific ill contacts. No history immunosuppression. Does live independently but daughter lives close by. No history of Covid. No history of coagulopathy or DVTs Review of Systems: Review of Systems: Constitutional: Denies fever or chills Eyes: Denies change in visual acuity HENT: Denies nasal congestion or sore throat Respiratory: Denies cough or shortness of breath Cardiovascular: Denies chest pain. Complains of lower leg edema GI: Denies abdominal pain, nausea, vomiting, bloody stools or diarrhea : Denies dysuria Musculoskeletal: Denies back pain or joint pain. Complains of left lower leg calf tenderness. Integument: Denies rash Neurologic: Denies headache, focal weakness or sensory changes Endocrine: Denies polyuria or polydipsia Lymphatic: Denies swollen glands Psychiatric: Denies depression or anxiety Family History: Family History: Noncontributory to presentation Current Medications: Current Meds: See nursing for home meds Allergies: Allergies: Allergies Coded Allergies Type Severity Reaction Last Updated Verified No Known Drug Allergies 11/26/15 No Physical Exam: PE: Constitutional: Well developed, well nourished, no acute distress, non-toxic appearance. [] HENT: Normocephalic, atraumatic, bilateral external ears normal, oropharynx moist, no oral exudates, nose normal. [] Eyes: PERRLA, EOMI, conjunctiva normal, no discharge. [] Neck: Normal range of motion, no tenderness, supple, no stridor. No JVD Cardiovascular:Heart rate regular rhythm, no murmur [] Lungs & Thorax: Bilateral breath sounds equal and apex of few basilar wheezes on auscultation [] few basilar wheezes but they clear with cough. Abdomen: Bowel sounds normal, soft, left calf tenderness, no masses, no pulsatile masses. [] Skin: Warm, dry, no erythema, no rash. [] Back: No tenderness, no CVA tenderness. [] Extremities: No tenderness, no cyanosis, no clubbing, ROM intact, lower limb edema. Pitting edema and left foot. No cording appreciated in left calf. Some arthritic findings in extremities. Neurologic: Alert and oriented X 3, normal motor function, normal sensory function, no focal deficits noted. DTRs +2 patella and brachial Psychologic: Affect anxious, judgement normal, mood normal. [] EKG: EKG: My interpretation EKG shows sinus rhythm at 67 bpm. No acute morphology. Time of EKG is 1931 hrs. My interpretation of second EKG shows sinus rhythm at 66 bpm. Borderline prolonged QT interval at 468 ms and a QTC of 493 ms. But no acute morphology appreciated. No acute interval change from prior EKG. Time of this EKG is 46 minutes [] Radiology/Procedures: Radiology/Procedures: [][address] [address] IMAGING REPORT Signed PATIENT: ANASTACIO NUGENT ACCOUNT: [id number] : 1945 LOCATION: ER AGE: 76 SEX: F EXAM STATUS: REG ER ORD. PHYSICIAN: CRYSTAL BURGER MD REASON: chf hx PROCEDURE: PORTABLE CHEST 1V Exam: Chest one view INDICATION: CHF TECHNIQUE: Frontal view of the chest Comparisons: 04/01/2020 FINDINGS: The cardiomediastinal silhouette and pulmonary vessels are within normal limits. Hazy opacity at lung bases. No pleural effusion. IMPRESSION: Findings may relate to mild pulmonary edema. Electronically signed by: Fausto Ramirez MD (06/03/2021 10:33 PM) [facility] DICTATED AND SIGNED BY: FAUSTO RAMIREZ MD DATE: 06/03/212230 CC: CRYSTAL BURGER MD; HIWOT MCELROY ~MTH0 0 [id number] [place] [id number] IMAGING REPORT Signed PATIENT: ANASTACIO NUGENT ACCOUNT: [id number] : 1945 LOCATION: ER AGE: 76 SEX: F EXAM STATUS: REG ER ORD. PHYSICIAN: CRYSTAL BURGER MD REASON: pain edema PROCEDURE: VENOUS LOWER EXTREMITY LEFT US LEFT LOWER EXTREMITY ARTERIAL DUPLEX EVAL, US DPLX VENOUS EXTREMITY LOWER LT 06/03/2021 10:28 PM Clinical Information: Left lower extremity pain and edema. Comparison: None. Technique: Multiple grayscale, color Doppler, and spectral Doppler sonographic images of the lower extremity arterial and venous structures were obtained. Findings: The left common femoral, femoral, and popliteal veins exhibit normal compression, respiratory phasicity, and augmentation. No intraluminal thrombi are identified. Color Doppler flow is demonstrated in the left posterior tibial veins. Greater saphenous veins are patent at the saphenofemoral junction. Left lower extremity arterial system: Calcified atheromatous plaque is identified throughout the left lower extremity arterial system with focal elevated velocity identified within the mid left superficial femoral artery and distal superficial femoral artery as well as the dorsalis pedis artery. Common femoral artery: 149 cm/s Profunda artery: 155 cm/s Superficial femoral artery, proximal: 186 cm/s Superficial femoral artery, mid: 234 cm/s Superficial femoral artery, distal: 192 cm/s Popliteal artery: 118 cm/s Posterior tibial artery: 21 cm/s Anterior tibial artery: 20 cm/s Peroneal artery: 40 cm/s Dorsalis pedis artery: 109 cm/s Impression: 1. No evidence of deep venous thrombosis. 2. Focal increased velocities identified within the distal left superficial femoral artery and popliteal artery as compared to the distal leg which could represent areas of mild to moderate multifocal stenosis. 3. Focal elevated velocity within the dorsalis pedis artery could reflect mo derate to advanced stenosis. Electronically signed by: Vernon Chacon MD (06/03/2021 11:30 PM) [facility] DICTATED AND SIGNED BY: VERNON CHACON MD DATE: 06/03/212326 CC: CRYSTAL BURGER MD; HIWOT MCELROY ~MTH0 0 Heart Score: C/O Chest Pain: N/A Risk Factors: Risk Factors: DM, Current or recent (<one month) smoker, HTN, HLP, family history of CAD, obesity. Risk Scores: Score 0 - 3: 2.5% MACE over next 6 weeks - Discharge Home Score 4 - 6: 20.3% MACE over next 6 weeks - Admit for Clinical Observation Score 7 - 10: 72.7% MACE over next 6 weeks - Early Invasive Strategies Course & Med Decision Making: Course & Med Decision Making Pertinent Labs and Imaging studies reviewed. (See chart for details) Patient wear support stockings. Consider application of compression pumps at night. Take a daily baby aspirin a day. Follow-up with primary care. Have them review ED work-up. Edema does not appear to be from a component of signficant heart failure or DVT. BNP normal range 266. May be a result of lymphedema. Does appear to have some mild to moderate stenosis and lower them on ultrasound.. See formal report when available. Follow-up with primary care have them review ED record. Return if any concerns.. Will give trial dose of Lasix 20 mg. Impression: 1. Low limb edema > in Lt. foot 2. Mild to moderate arterial stenosis lower calf 3. Mild anemia -hemoglobin 10.1 [] Dragon Disclaimer: Dragon Disclaimer: This electronic medical record was generated, in whole or in part, using a voice recognition dictation system. Departure Departure: Referrals: HIWOT MCELROY (PCP) Lisa Disclaimer This chart was dictated in whole or in part using Voice Recognition software in a busy, high-work load, and often noisy Emergency Department environment. It may contain unintended and wholly unrecognized errors or omissions. Dragon Disclaimer This chart was dictated in whole or in part using Voice Recognition software in a busy, high-work load, and often noisy Emergency Department environment. It may contain unintended and wholly unrecognized errors or omissions. CRYSTAL BURGER MD Jun 03, 2021 19:19
[2021-06-03] MEDS ORDERED: IV RINGERS SOLUTION,LACTATED 1,000 ML IV SCH (19:45)
[2021-06-03] MEDS ORDERED: ASPIRIN CHEWABLE 81 MG TABLET. PO ONE (19:45)
[2021-06-03 20:01] LABS: BASO % 1 % (0-3); EOS # 0.3 x10^3/uL (0.0-0.7); EOS % 8 % (0-3); HEMATOCRIT 29.9 % (36.0-47.0); HEMOGLOBIN 10.1 g/dL (12.0-15.5); LYMPH # 1.4 x10^3/uL (1.0-4.8); LYMPH % 34 % (24-48); MEAN CORPUSCULAR HEMOGLOBIN 33 pg (25-35); MEAN CORPUSCULAR HGB CONC 34 g/dL (31-37); MEAN CORPUSCULAR VOLUME 97 fL (79-100); MONO # 0.3 x10^3/uL (0.0-1.1); MONO % 9 % (0-9); NEUT % 49 % (31-73); PLATELET COUNT 169 x10^3/uL (140-400); RED BLOOD COUNT 3.07 x10^6/uL (3.50-5.40)
[2021-06-03 20:49] LABS: CALCIUM 8.4 mg/dL (8.5-10.1); GFR 53.6; POTASSIUM 3.9 mmol/L (3.5-5.1)
[2021-06-03 21:04] LABS: ALBUMIN 3.3 g/dL (3.4-5.0); DIRECT BILIRUBIN 0.1 mg/dL (0.0-0.2); TOTAL BILIRUBIN 0.5 mg/dL (0.2-1.0); TOTAL PROTEIN 6.2 g/dL (6.4-8.2)
--- NOTE | 2021-06-03 21:54 | EKG ---
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
--- NOTE | 2021-06-03 22:35 | RAD ---
Exam: Chest one view INDICATION: CHF TECHNIQUE: Frontal view of the chest Comparisons: 04/01/2020 FINDINGS: The cardiomediastinal silhouette and pulmonary vessels are within normal limits. Hazy opacity at lung bases. No pleural effusion. IMPRESSION: Findings may relate to mild pulmonary edema. Electronically signed by: Fausto Mckay MD (06/03/2021 10:33 PM) [facility]
[2021-06-03 23:00] LABS: CLARITY,URINE CLEAR; COLOR,URINE YELLOW; GLUCOSE,URINE NEG (NEG); NITRITE,URINE NEG (NEG); UROBILINOGEN,URINE 0.2 mg/dL (0.2 mg/dL)
[2021-06-03 23:01] LABS: BARBITURATES NEG (NEG); BENZODIAZEPINES NEG (NEG); CANNABINOIDS NEG (NEG); COCAINE NEG (NEG); METHADONE NEG (NEG); OPIATES NEG (NEG); PHENCYCLIDINE NEG (NEG)
[2021-06-03 23:03] LABS: BACTERIA,URINE FEW /HPF (0-FEW); RBC,URINE 0 /HPF (0-2); SQUAMOUS EPITHELIAL CELL,UR FEW /LPF
[2021-06-03 23:05] LABS: AMPHETAMINE/METHAMPHETAMINE NEG (NEG)
--- NOTE | 2021-06-03 23:33 | RAD ---
US LEFT LOWER EXTREMITY ARTERIAL DUPLEX EVAL, US DPLX VENOUS EXTREMITY LOWER LT 06/03/2021 10:28 PM Clinical Information: Left lower extremity pain and edema. Comparison: None. Technique: Multiple grayscale, color Doppler, and spectral Doppler sonographic images of the lower ex tremity arterial and venous structures were obtained. Findings: The left common femoral, femoral, and popliteal veins exhibit normal compression, respiratory phasici ty, and augmentation. No intraluminal thrombi are identified. Color Doppler flow is demonstrated in t he left posterior tibial veins. Greater saphenous veins are patent at the saphenofemoral junction. Left lower extremity arterial system: Calcified atheromatous plaque is identified throughout the left lower extremity arterial system with focal elevated velocity identified within the mid left superfic ial femoral artery and distal superficial femoral artery as well as the dorsalis pedis artery. Common femoral artery: 149 cm/s Profunda artery: 155 cm/s Superficial femoral artery, proximal: 186 cm/s Superficial femoral artery, mid: 234 cm/s Superficial femoral artery, distal: 192 cm/s Popliteal artery: 118 cm/s Posterior tibial artery: 21 cm/s Anterior tibial artery: 20 cm/s Peroneal artery: 40 cm/s Dorsalis pedis artery: 109 cm/s Impression: 1. No evidence of deep venous thrombosis. 2. Focal increased velocities identified within the distal left superficial femoral artery and poplit eal artery as compared to the distal leg which could represent areas of mild to moderate multifocal s tenosis. 3. Focal elevated velocity within the dorsalis pedis artery could reflect moderate to advanced stenos is. Electronically signed by: Sonali Heard MD (06/03/2021 11:30 PM) [facility]
[2021-06-03 23:52] VITALS: BP 138/64
[2021-06-04] MEDS ORDERED: FUROSEMIDE 40 MG TABLET PO ONE (00:30)
--- NOTE | 2021-06-04 02:39 | EKG ---
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
== END 2021-06-04 00:04 | disposition home or self-care (01) ==
LOC: ER 19:03
DX: I77.1 Stricture of artery (principal); D64.9 Anemia, unspecified; J45.909 Unspecified asthma, uncomplicated; E78.00 Pure hypercholesterolemia, unspecified; I10 Essential (primary) hypertension; E03.9 Hypothyroidism, unspecified; E05.90 Thyrotoxicosis, unspecified without thyrotoxic crisis or storm; Z86.73 Personal history of transient ischemic attack (TIA), and cerebral infarction without residual deficits
CPT/HCPCS: 36415; 71045; 80048; 80076; 80307; 81001; 82550; 83690; 83735; 83880; 84443; 84484; 85025; 85379; 85610; 85730; 87086; 93005; 93926; 93971; 96360; 96361; 99285; J7120

== ENCOUNTER → 2021-06-20 | Outpatient (CLI) | payer MEDICARE, OTHER ==
[2021-06-03 23:52] VITALS: BP 138/64
--- NOTE | 2021-06-20 17:24 | RAD ---
EXAM: Lumbar spine CT without contrast. HISTORY: Pain. TECHNIQUE: Computed tomographic images of the lumbar spine were obtained without contrast. Multiplana r reformatting was performed. *One or more of the following individualized dose reduction techniques were utilized for this examina tion: 1. Automated exposure control. 2. Adjustment of the mA and/or kV according to patient size. 3. Use of iterative reconstruction technique. COMPARISON: None. FINDINGS: There is mild lumbar levoscoliosis centered at L3. There is 2 mm retrolisthesis of L2 on L3 . There is no acute or subacute fracture or suspicious osseous lesion. There is posterior endplate re modeling and Schmorl's node formation predominantly along the superior aspect of L2. There are multip le bilateral renal vascular calcifications. There is calcified atherosclerotic plaque involving the a jose m and iliac bifurcation. The sacroiliac joints are intact At T12-L1, there is a small right paracentral disc protrusion with 5 mm inferior extrusion. There is calcification of the extruded disc material. There is no stenosis. At L1-L2, there is a broad-based posterior central to left paracentral disc protrusion superimposed o n a disc bulge and endplate remodeling. There is moderate central canal stenosis. At L2-L3, there is a disc bulge and endplate remodeling. There is no stenosis. At L3-L4, there is a disc bulge and endplate remodeling. There is mild bilateral foraminal stenosis. At L4-L5, there is a disc bulge and endplate remodeling. There is mild bilateral foraminal stenosis. There is mild central canal stenosis. At L5-S1, there is a disc bulge. There is mild bilateral foraminal stenosis. IMPRESSION: 1. Multilevel degenerative change involving the lower thoracic and lumbar spine, described in detail above. This is associated with moderate central canal stenosis at L1-L2 and mild foraminal and centra l canal stenosis at the aforementioned lumbar levels. 2. Bone demineralization and mild chronic associated decreased vertebral body height at the lower lum bar levels. There is no acute or subacute fracture or suspicious osseous lesion. Electronically signed by: Zuleika Barraza MD (06/20/2021 5:21 PM) [id number]
== END ==
LOC: CT 15:14
PROVIDERS: ATTEND Psychiatry & Neurology Neurology
DX: M51.17 Intervertebral disc disorders with radiculopathy, lumbosacral region (principal); M51.15 Intervertebral disc disorders with radiculopathy, thoracolumbar region; M48.07 Spinal stenosis, lumbosacral region; M51.46 Schmorl's nodes, lumbar region; I70.0 Atherosclerosis of aorta
CPT/HCPCS: 72131

== ENCOUNTER → 2021-06-20 | Outpatient (CLI) | payer MEDICARE, OTHER ==
[2021-06-03 23:52] VITALS: BP 138/64
[2021-06-20 16:15] LABS: BACTERIA,URINE 0 /HPF (0-FEW); CLARITY,URINE CLEAR; COLOR,URINE YELLOW; GLUCOSE,URINE NEG (NEG); NITRITE,URINE NEG (NEG); RBC,URINE 0 /HPF (0-2); UROBILINOGEN,URINE 0.2 mg/dL (0.2 mg/dL); WBC,URINE RARE /HPF (0-4)
[2021-06-20 16:16] LABS: SQUAMOUS EPITHELIAL CELL,UR OCC /LPF
== END ==
LOC: LAB 15:16
PROVIDERS: ATTEND Internal Medicine Cardiovascular Disease
DX: E88.09 Other disorders of plasma-protein metabolism, not elsewhere classified (principal)
CPT/HCPCS: 81001; 87086